=== PATIENT | male | born 1955 | race American Indian/Alaskan Native ===

== ENCOUNTER 2017-09-06 15:26 | Emergency (ER) | payer MEDICAID ==
[2017-09-06 16:48] LABS: Bacteria,Urine 1+ /HPF (Negative); Bilirubin,Urine NEG (Negative); Blood,Urine MOD (Negative); Color,Urine Yellow (Yellow); Mucus,Urine FEW /HPF; Urobilinogen,Urine < 2.0 mg/dL (<2.0)
[2017-09-06 16:50] LABS: RBC,Urine > 182.0 /HPF (0.0-6.0)
[2017-09-06 16:51] LABS: WBC,Urine > 182.0 /HPF (0.0-6.0)
[2017-09-06 17:01] LABS: Hemoglobin 13.3 gm/dl (11.8-15.2); Mean Corpuscular HGB Conc 33 % (32-34); Mean Corpuscular Hemoglobin 30 pg (28-32); Mean Corpuscular Volume 90 fl (84-94); Platelet Count 255 K/mm3 (140-440); Red Blood Count 4.43 M/mm3 (3.65-5.03); Red Cell Distribution Width 14.7 % (13.2-15.2)
[2017-09-06 17:15] LABS: Alanine Aminotransferase 10 units/L (7-56); Albumin 3.7 g/dL (3.9-5); BUN/Creatinine Ratio 13; Blood Urea Nitrogen 13 mg/dL (9-20); Calcium 8.9 mg/dL (8.4-10.2); Hemolysis Index 9
[2017-09-06] MEDS ORDERED: LEVAQUIN PO ONE (17:24)
[2017-09-06 17:53] LABS: Basophils % (Manual) 0 % (0.0-1.8); Eosinophils % (Manual) 0 % (0.0-4.3); Total Cells Counted 100
--- NOTE | 2017-09-06 18:01 | XRay Report ---
FINAL REPORT PROCEDURE: XR ABDOMEN 2V TECHNIQUE: Abdominal radiograph, single supine AP view. HISTORY: abd pain COMPARISON: No prior studies are available for comparison. FINDINGS: Bowel gas pattern:Intestinal gas is distributed in nondistended small and large bowel loops. There is mild degree residual stool.. Masses or calcifications:A 1.5 centimeter radiopaque density is noted in the right lower quadrant. 3 millimeter radiopaque density is noted in the pelvis on the right side just below the level of the sacroiliac joint most likely representing a phlebolith... Bony structures:No significant abnormality. Other:None. IMPRESSION: Nonspecific intestinal gas pattern 1.5 centimeter radiopaque density in the right lower quadrant most likely represents an ingested foreign body within the cecum. 3 millimeter radiopaque density in the pelvis most likely represents a phlebolith. Comparison with any previous studies would be of help.
[2017-09-06 19:31] VITALS: BP 144/82
--- NOTE | 2017-09-06 19:32 | Ultrasound Report ---
FINAL REPORT PROCEDURE: Limited abdominal ultrasound. TECHNIQUE: Real-time sonography was performed of the right upper quadrant of the abdomen with image documentation. CPT 73700 HISTORY: Upper abdominal pain. COMPARISON: No prior studies are available for comparison. FINDINGS: The pancreas is grossly normal. The liver has uniform echogenicity without focal masses. The gallbladder is incompletely distended. There is no definite gallbladder wall thickening. There are numerous echogenic gallstones. The technologist did not report whether or not the patient was tender over the gallbladder. The common bile duct measures 4.4 millimeters. The right kidney appears normal in size and has normal echogenicity. IMPRESSION: Cholelithiasis.
--- NOTE | 2017-09-06 19:48 | Emergency Department Report ---
HPI - General Chief Complaint: Urogenital-Male Time Seen by Provider: 09/06/17 16:22 - HPI HPI: 62-year-old male presents to the emergency department with 2 complaints. First, the patient says that his Gilmore catheter has not been draining and has not done so for the past 2-3 days. He is not very specific on the reason why he needs an indwelling Gilmore catheter but says this particular Gilmore has been in for a few months and overall he has been using one for about 7 years. He says that he does not have a specific urologist and usually goes in and see someone threw the [facility]. He denies any fever, nausea, vomiting, dysuria, hematuria. Secondary, patient points of some upper abdominal pain has been going on for the past few days. He denies any constipation, diarrhea. He has not taken anything for his symptoms prior to presentation. No recent travel or sick contacts at home. ED Past Medical Hx - Past Medical History Previous Medical History?: Yes Additional medical history: urinary problems - Social History Smoking Status: Current Some Day Smoker Substance Use Type: None - Medications Home Medications: Home Medications Medication Instructions Recorded Confirmed Last Taken Type Sulfamethoxazole/Trimethoprim 1 each PO BID #14 tablet 09/06/17 Unknown Rx [Bactrim DS TAB] ED Review of Systems ROS: Stated complaint: ABD PAIN Other details as noted in HPI Comment: All other systems reviewed and negative Constitutional: denies: chills, fever Eyes: denies: eye pain, eye discharge, vision change ENT: denies: ear pain, throat pain Respiratory: denies: cough, shortness of breath, wheezing Cardiovascular: denies: chest pain, palpitations Gastrointestinal: abdominal pain. denies: vomiting Genitourinary: denies: hematuria, discharge Musculoskeletal: denies: back pain, joint swelling, arthralgia Skin: denies: rash, lesions Neurological: denies: headache, weakness, paresthesias Physical Exam - Physical Exam Vital Signs: Vital Signs 09/06/17 09/06/17 09/06/17 16:01 18:24 19:10 Temperature 98.1 F 98.1 F Pulse Rate 86 71 75 Respiratory 18 20 18 Rate Blood Pressure 138/93 Blood Pressure 132/72 144/82 [Left] O2 Sat by Pulse 98 100 98 Oximetry Physical Exam: GENERAL: The patient is well-developed well-nourished. HENT: Normocephalic. Atraumatic. Patient has moist mucous membranes. EYES: Extraocular motions are intact. Pupils equal reactive to light bilaterally. NECK: Supple. Trachea is midline. CHEST/LUNGS: Clear to auscultation. There is no respiratory distress noted. HEART/CARDIOVASCULAR: Regular. There is no tachycardia. There is no murmur. ABDOMEN: Abdomen is soft. Mild right upper quadrant tenderness to palpation. No guarding. Patient has normal bowel sounds. There is no abdominal distention. SKIN: There is no rash. There is no edema. There is no diaphoresis. NEURO: The patient is awake, alert, and oriented. The patient is cooperative. The patient has no focal neurologic deficits. The patient has normal speech and gait. MUSCULOSKELETAL: There is no tenderness or deformity. There is no limitation range of motion. There is no evidence of acute injury. ED Course Vital Signs 09/06/17 09/06/17 09/06/17 16:01 18:24 19:10 Temperature 98.1 F 98.1 F Pulse Rate 86 71 75 Respiratory 18 20 18 Rate Blood Pressure 138/93 Blood Pressure 132/72 144/82 [Left] O2 Sat by Pulse 98 100 98 Oximetry ED Medical Decision Making - Lab Data Result diagrams: 09/06/17 16:47 09/06/17 16:47 - Radiology Data Radiology results: report reviewed, image reviewed interpreted by me: Abdominal x-ray shows nonspecific nonobstructive bowel gas. PROCEDURE: Limited abdominal ultrasound. TECHNIQUE: Real-time sonography was performed of the right upper quadrant of the abdomen with image documentation. CPT 20642 HISTORY: Upper abdominal pain. COMPARISON: No prior studies are available for comparison. FINDINGS: The pancreas is grossly normal. The liver has uniform echogenicity without focal masses. The gallbladder is incompletely distended. There is no definite gallbladder wall thickening. There are numerous echogenic gallstones. The technologist did not report whether or not the patient was tender over the gallbladder. The common bile duct measures 4.4 millimeters. The right kidney appears normal in size and has normal echogenicity. IMPRESSION: Cholelithiasis. Transcribed By: [facility] Dictated By: RAJEEV STEARNS MD Electronically Authenticated By: RAJEEV STEARNS MD Signed Date/Time: 03/24/18 1927 - Medical Decision Making Regarding the patient's Gilmore catheter, it was hard to flush so it was replaced and there were no obvious complications. There was some mild to moderate drainage at first. Bladder scan was done that showed no residual urine in the bladder. The urine was tested and it showed a urinary tract infection and the patient will be treated with antibiotics. Regarding the patient's upper abdominal pain, the patient had an ultrasound done that shows cholelithiasis without cholecystitis. The rest of his labs are unremarkable including belly labs such as LFTs, bilirubin and lipase. The patient appears safe for discharge home at this time. Vital signs stable throughout his ED course. He says he is feeling improved. He has been given referrals for primary care, urology and Gen. surgery. He will return to the ER with any worsening of his symptoms or any acute distress. - Differential Diagnosis UTI, BPH, pyelonephritis, cholelithiasis, cholecystitis Critical Care Time: No Critical care attestation.: If time is entered above; I have spent that time in minutes in the direct care of this critically ill patient, excluding procedure time. ED Disposition Clinical Impression: UTI (urinary tract infection) Obstructed Gilmore catheter Qualifiers: Encounter type: initial encounter Qualified Code(s): T83.091A - Other mechanical complication of indwelling urethral catheter, initial encounter Cholelithiasis Qualifiers: Cholelithiasis location: gallbladder Cholecystitis presence: without cholecystitis Biliary obstruction: without biliary obstruction Qualified Code(s) : K80.20 - Calculus of gallbladder without cholecystitis without obstruction Disposition: DC-01 TO HOME OR SELFCARE Is pt being admited?: No Condition: Stable Instructions: Biliary Colic (ED), Gilmore Catheter Placement and Care (ED), Urinary Tract Infection in Men (ED) Additional Instructions: Please follow-up with your primary care doctor in the next few days. I have given her a referral for a local surgeon, Dr guzmán, to follow up regarding her gallstones. I have given you a local urologist, Dr Young, to follow up regarding your urinary problems and your gilmore catheter. Return to the emergency Department with any worsening of your symptoms or any acute distress. Prescriptions: Sulfamethoxazole/Trimethoprim [Bactrim DS TAB] 1 each PO BID #14 tablet Referrals: BALJINDER TALLEY MD [Primary Care Provider] - 3-5 Days LARRY GUZMÁN MD [Staff Physician] - 3-5 Days MARLENY YOUNG MD [Staff Physician] - 3-5 Days Time of Disposition: 19:48
== END 2017-09-06 20:26 | disposition home or self-care (01) ==
LOC: ED 15:26
DX: N39.0 Urinary tract infection, site not specified (principal); K80.20 Calculus of gallbladder without cholecystitis without obstruction; T83.091A Other mechanical complication of indwelling urethral catheter, initial encounter; F17.200 Nicotine dependence, unspecified, uncomplicated
CPT/HCPCS: 36415; 51702; 74019; 76705; 80053; 81001; 85007; 85025; 99285

== ENCOUNTER 2018-01-05 10:45 | Emergency (ER) | payer MEDICAID ==
[2018-01-05 12:04] LABS: Bacteria,Urine 3+ /HPF (Negative); Bilirubin,Urine NEG (Negative); Blood,Urine MOD (Negative); Color,Urine Yellow (Yellow); Mucus,Urine 1+ /HPF
[2018-01-05 12:05] LABS: RBC,Urine > 182.0 /HPF (0.0-6.0); WBC,Urine > 182.0 /HPF (0.0-6.0)
[2018-01-05 12:26] LABS: Basophils % (Auto) 0.5 % (0.0-1.8); Eosinophils # (Auto) 0.1 K/mm3 (0.0-0.4); Eosinophils % (Auto) 1.2 % (0.0-4.3); Hematocrit 40.5 % (35.5-45.6); Hemoglobin 13.6 gm/dl (11.8-15.2); Lymphocytes # (Auto) 1.5 K/mm3 (1.2-5.4); Lymphocytes % (Auto) 30.2 % (13.4-35.0); Mean Corpuscular HGB Conc 34 % (32-34); Mean Corpuscular Hemoglobin 31 pg (28-32); Mean Corpuscular Volume 92 fl (84-94); Monocytes # (Auto) 0.3 K/mm3 (0.0-0.8); Monocytes % (Auto) 5.7 % (0.0-7.3); Platelet Count 182 K/mm3 (140-440); Red Blood Count 4.38 M/mm3 (3.65-5.03); Red Cell Distribution Width 15.3 % (13.2-15.2)
[2018-01-05 12:38] LABS: BUN/Creatinine Ratio 16; Blood Urea Nitrogen 21 mg/dL (9-20); Calcium 9.2 mg/dL (8.4-10.2); Hemolysis Index 6
[2018-01-05 12:52] VITALS: BP 155/99
--- NOTE | 2018-01-05 12:54 | Emergency Department Report ---
HPI - General Chief Complaint: Tube Replacement Time Seen by Provider: 01/05/18 12:42 - HPI HPI: 62-year-old male presents to the emergency department with complaint of a clogged indwelling Hopson catheter. He has had a small amount of cloudy urine output but otherwise feels like he has to urinate and there does not appear to be enough output to match. He has lower abdominal and suprapubic discomfort. He did not take anything for her symptoms by presentation. He denies having a urologist for follow-up. No fever, nausea, vomiting. He says that he has had a urinary catheter in place over the past 10 years that he says is secondary to prostate issues. ED Past Medical Hx - Past Medical History Additional medical history: urinary problems - Social History Smoking Status: Current Every Day Smoker Substance Use Type: None - Medications Home Medications: Home Medications Medication Instructions Recorded Confirmed Last Taken Type Sulfamethoxazole/Trimethoprim 1 each PO BID #14 tablet 09/06/17 Unknown Rx [Bactrim DS TAB] Ciprofloxacin HCl [Cipro] 500 mg PO BID #14 tablet 01/05/18 Unknown Rx ED Review of Systems ROS: Stated complaint: PENAL AREA Other details as noted in HPI Comment: All other systems reviewed and negative Constitutional: denies: chills, fever Eyes: denies: eye pain, eye discharge, vision change ENT: denies: ear pain, throat pain Respiratory: denies: cough, shortness of breath, wheezing Cardiovascular: denies: chest pain, palpitations Gastrointestinal: abdominal pain. denies: vomiting Genitourinary: urgency, dysuria Musculoskeletal: denies: back pain, joint swelling, arthralgia Skin: denies: rash, lesions Neurological: denies: headache, weakness, paresthesias Physical Exam - Physical Exam Vital Signs: Vital Signs 01/05/18 11:31 Temperature 97.6 F Pulse Rate 89 Respiratory 24 Rate Blood Pressure 175/108 O2 Sat by Pulse 100 Oximetry ED Course Vital Signs 01/05/18 11:31 Temperature 97.6 F Pulse Rate 89 Respiratory 24 Rate Blood Pressure 175/108 O2 Sat by Pulse 100 Oximetry ED Medical Decision Making - Lab Data Result diagrams: 01/05/18 12:16 01/05/18 12:16 - Medical Decision Making The patient's Hopson catheter was replaced upon arrival to the emergency department with a 16 Armenian catheter. There were a few large blood clots and immediately exited followed by about 1 L of urine. After this, patient says that he feels greatly improved. Critical care attestation.: If time is entered above; I have spent that time in minutes in the direct care of this critically ill patient, excluding procedure time. ED Disposition Clinical Impression: Obstructed Hopson catheter Qualifiers: Encounter type: initial encounter Qualified Code(s): T83.091A - Other mechanical complication of indwelling urethral catheter, initial encounter UTI (urinary tract infection) Qualifiers: Urinary tract infection type: acute cystitis Hematuria presence: with hematuria Qualified Code(s): N30.01 - Acute cystitis with hematuria Hematuria Qualifiers: Hematuria type: unspecified type Qualified Code(s): R31.9 - Hematuria, unspecified Hypertension Qualifiers: Hypertension type: essential hypertension Qualified Code(s): I10 - Essential ( primary) hypertension Disposition: TO HOME OR SELFCARE Is pt being admited?: No Condition: Stable Instructions: Hopson Catheter Placement and Care (ED), Urinary Tract Infection in Men (ED), Acute Hematuria (ED), Hypertension (ED) Additional Instructions: Please follow up with a primary care physician in the next few days. I've also given urinary referral for a local urologist, Dr. Young, to follow up regarding your Hopson catheter issues, your urinary tract infection and the blood found in the urine and catheter. Return to the emergency Department with any worsening of your symptoms or any acute distress. Try and stay away from foods that are high in salt and caffeinated products to help with your elevated blood pressure. Keep a blood pressure log. Take antibiotics as prescribed. Prescriptions: Ciprofloxacin HCl [Cipro] 500 mg PO BID #14 tablet Referrals: SOLEDAD OLEA MD [Primary Care Provider] - 3-5 Days MARLENY YOUNG MD [Staff Physician] - 3-5 Days JIMMY HOLLEY MD [Staff Physician] - 3-5 Days [facility] [Outside] - 3-5 Days Time of Disposition: 12:55
== END 2018-01-05 13:07 | disposition home or self-care (01) ==
LOC: ED 10:45
DX: T83.091A Other mechanical complication of indwelling urethral catheter, initial encounter (principal); N30.01 Acute cystitis with hematuria; I10 Essential (primary) hypertension; F17.200 Nicotine dependence, unspecified, uncomplicated
CPT/HCPCS: 36415; 51702; 80048; 81001; 85025; 87086; 99283

== ENCOUNTER 2018-01-07 04:09 | Emergency (ER) | payer MEDICAID ==
[2018-01-07] MEDS ORDERED: AUGMENTIN 875 MG PO ONE (07:51)
[2018-01-07] MEDS ORDERED: MOTRIN PO ONE (07:51)
--- NOTE | 2018-01-07 07:56 | Emergency Department Report ---
ED ENT HPI - General Chief complaint: Earache Stated complaint: EAR PAIN Time Seen by Provider: 01/07/18 07:31 Source: patient Mode of arrival: Ambulatory Limitations: No Limitations - History of Present Illness Initial comments: 62-year-old male past medical history chronic indwelling urinary catheter presents with complaint of approximately 2-3 days of persistent bilateral earache. Patient states he feels as though his ears are both filled with wax. Denies fevers or chills. States he has slightly muffled hearing bilaterally. Patient is awake alert and oriented 3 does not appear to be in acute distress. States discomfort started in left ear then migrated to right. Denies any tinnitus. States he has been attempting to clean his ears at home with eardrops and Q-tips MD complaint: ear pain Onset/Timin -: days(s) Location: R ear, L ear Severity: mild Quality: aching Consistency: constant - Related Data Previous Rx's Medication Instructions Recorded Last Taken Type Sulfamethoxazole/Trimethoprim 1 each PO BID #14 tablet 09/06/17 Unknown Rx [Bactrim DS TAB] Ciprofloxacin HCl [Cipro] 500 mg PO BID #14 tablet 01/05/18 Unknown Rx Amoxicillin/K Clav Tab [Augmentin 1 tab PO Q12HR #14 tab 01/07/18 Unknown Rx 875 mg] Ibuprofen [Motrin] 800 mg PO Q8HR PRN #15 tablet 01/07/18 Unknown Rx Neomy/Polymyx B/Hc (Otic) Soln 4 drops OTIC TID #1 bottle 01/07/18 Unknown Rx [Cortisporin (Otic) Soln] Allergies Allergy/AdvReac Type Severity Reaction Status Date / Time No Known Allergies Allergy Unverified 09/06/17 16:01 ED Dental HPI - General Chief complaint: Earache Stated complaint: EAR PAIN Time Seen by Provider: 01/07/18 07:31 Source: patient Mode of arrival: Ambulatory Limitations: No Limitations - Related Data Previous Rx's Medication Instructions Recorded Last Taken Type Sulfamethoxazole/Trimethoprim 1 each PO BID #14 tablet 09/06/17 Unknown Rx [Bactrim DS TAB] Ciprofloxacin HCl [Cipro] 500 mg PO BID #14 tablet 01/05/18 Unknown Rx Amoxicillin/K Clav Tab [Augmentin 1 tab PO Q12HR #14 tab 01/07/18 Unknown Rx 875 mg] Ibuprofen [Motrin] 800 mg PO Q8HR PRN #15 tablet 01/07/18 Unknown Rx Neomy/Polymyx B/Hc (Otic) Soln 4 drops OTIC TID #1 bottle 01/07/18 Unknown Rx [Cortisporin (Otic) Soln] Allergies Allergy/AdvReac Type Severity Reaction Status Date / Time No Known Allergies Allergy Unverified 09/06/17 16:01 ED Review of Systems ROS: Stated complaint: EAR PAIN Other details as noted in HPI Constitutional: denies: chills, fever Eyes: denies: eye pain, eye discharge, vision change ENT: ear pain. denies: throat pain Respiratory: denies: cough, shortness of breath, wheezing Cardiovascular: denies: chest pain, palpitations Endocrine: no symptoms reported Gastrointestinal: denies: abdominal pain, nausea, diarrhea Genitourinary: denies: urgency, dysuria Musculoskeletal: denies: back pain, joint swelling, arthralgia Skin: denies: rash, lesions Neurological: denies: headache, weakness, paresthesias Psychiatric: denies: anxiety, depression Hematological/Lymphatic: denies: easy bleeding, easy bruising ED Past Medical Hx - Past Medical History Additional medical history: urinary problems - Social History Smoking Status: Current Every Day Smoker Substance Use Type: Alcohol - Medications Home Medications: Home Medications Medication Instructions Recorded Confirmed Last Taken Type Sulfamethoxazole/Trimethoprim 1 each PO BID #14 tablet 09/06/17 Unknown Rx [Bactrim DS TAB] Ciprofloxacin HCl [Cipro] 500 mg PO BID #14 tablet 01/05/18 Unknown Rx Amoxicillin/K Clav Tab [Augmentin 1 tab PO Q12HR #14 tab 01/07/18 Unknown Rx 875 mg] Ibuprofen [Motrin] 800 mg PO Q8HR PRN #15 tablet 01/07/18 Unknown Rx Neomy/Polymyx B/Hc (Otic) Soln 4 drops OTIC TID #1 bottle 01/07/18 Unknown Rx [Cortisporin (Otic) Soln] ED Physical Exam - General Limitations: No Limitations General appearance: alert, in no apparent distress - Head Head exam: Present: atraumatic, normocephalic - Eye Eye exam: Present: normal appearance - ENT ENT exam: Present: mucous membranes moist - Expanded ENT Exam Expanded TM/Canal exam: Erythema: Right TM, Left TM (bilateral ear canal and tympanic membrane injection. There is no cerumen in either ear on examination. No clinical signs of mastoiditis), Bulging: Right TM, Left TM (slight effusion of each tympanic membrane) - Neck Neck exam: Present: normal inspection - Respiratory Respiratory exam: Present: normal lung sounds bilaterally. Absent: respiratory distress - Cardiovascular Cardiovascular Exam: Present: regular rate, normal rhythm. Absent: systolic murmur, diastolic murmur, rubs, gallop - GI/Abdominal GI/Abdominal exam: Present: soft, normal bowel sounds - Rectal Rectal exam: Present: deferred - exam: Present: other (chronic indwelling Hopson catheter) - Extremities Exam Extremities exam: Present: normal inspection - Back Exam Back exam: Present: normal inspection - Neurological Exam Neurological exam: Present: alert, oriented X3 - Psychiatric Psychiatric exam: Present: normal affect, normal mood - Skin Skin exam: Present: warm, dry, intact, normal color. Absent: rash ED Course Vital Signs 01/07/18 04:10 Temperature 99 F Pulse Rate 79 Respiratory 14 Rate Blood Pressure 159/106 [Left] O2 Sat by Pulse 99 Oximetry ED Medical Decision Making - Medical Decision Making A/P: Bilateral otitis media 1-course of Augmentin 2-Motrin when necessary 3-follow-up with primary care 4- vital signs stable for discharge Critical care attestation.: If time is entered above; I have spent that time in minutes in the direct care of this critically ill patient, excluding procedure time. ED Disposition Clinical Impression: Otitis media Qualifiers: Otitis media type: unspecified Laterality: bilateral Qualified Code(s): H66.93 - Otitis media, unspecified, bilateral Disposition: - TO HOME OR SELFCARE Is pt being admited?: No Does the pt Need Aspirin: No Condition: Stable Instructions: Otitis Media (ED) Prescriptions: Amoxicillin/K Clav Tab [Augmentin 875 mg] 1 tab PO Q12HR #14 tab Ibuprofen [Motrin] 800 mg PO Q8HR PRN #15 tablet PRN Reason: Ear Pain Neomy/Polymyx B/Hc (Otic) Soln [Cortisporin (Otic) Soln] 4 drops OTIC TID #1 bottle Referrals: [facility] [Provider Group] - 3-5 Days Time of Disposition: 07:57
[2018-01-07 08:16] VITALS: BP 176/102
== END 2018-01-07 08:19 | disposition home or self-care (01) ==
LOC: ED 04:09
DX: H66.93 Otitis media, unspecified, bilateral (principal); F17.200 Nicotine dependence, unspecified, uncomplicated
CPT/HCPCS: 99282

== ENCOUNTER 2018-01-13 00:41 | Emergency (ER) | payer MEDICAID ==
[2018-01-13 04:36] LABS: Amorphous Crystals,Urine 3+; Bilirubin,Urine NEG (Negative); Blood,Urine NEG (Negative); Color,Urine Yellow (Yellow)
[2018-01-13 04:42] LABS: Protein,Urine >500 mg/dL (Negative); RBC,Urine < 1.0 /HPF (0.0-6.0)
[2018-01-13] MEDS ORDERED: KEFLEX PO ONE (04:51)
--- NOTE | 2018-01-13 05:01 | Emergency Department Report ---
HPI - General Chief Complaint: Abdominal Pain Time Seen by Provider: 01/13/18 04:12 - HPI HPI: 62-year-old male presents to the emergency department via EMS from home after he woke up and realized that his Gilmore catheter was not draining. He began having some lower abdominal and or suprapubic discomfort. No fever, nausea or vomiting. Patient has a history of BPH, hypertension, and has previous abdominal surgery for his prostate. He says that the Gilmore catheter has been in place for about one month. He says that he does not have a urologist. He did not take anything for her symptoms prior to presentation. ED Past Medical Hx - Past Medical History Hx Hypertension: Yes Additional medical history: urinary problems, BPH - Surgical History Additional Surgical History: Abdominal Surgery for prostate. - Social History Smoking Status: Current Every Day Smoker Substance Use Type: None - Medications Home Medications: Home Medications Medication Instructions Recorded Confirmed Last Taken Type Sulfamethoxazole/Trimethoprim 1 each PO BID #14 tablet 09/06/17 01/13/18 Unknown Rx [Bactrim DS TAB] Amoxicillin/K Clav Tab [Augmentin 1 tab PO Q12HR #14 tab 01/07/18 01/13/18 Unknown Rx 875 mg] Ibuprofen [Motrin] 800 mg PO Q8HR PRN #15 tablet 01/07/18 01/13/18 Unknown Rx Neomy/Polymyx B/Hc (Otic) Soln 4 drops OTIC TID #1 bottle 01/07/18 01/13/18 Unknown Rx [Cortisporin (Otic) Soln] Ciprofloxacin HCl [Cipro] 500 mg PO BID #14 tablet 01/13/18 Unknown Rx ED Review of Systems ROS: Stated complaint: URINARY RETENTION Other details as noted in HPI Comment: All other systems reviewed and negative Constitutional: denies: chills, fever Eyes: denies: eye pain, eye discharge, vision change ENT: denies: ear pain, throat pain Respiratory: denies: cough, shortness of breath, wheezing Cardiovascular: denies: chest pain, palpitations Gastrointestinal: abdominal pain. denies: nausea, vomiting Genitourinary: other (gilmore catheter malfunction). denies: discharge Musculoskeletal: denies: back pain, joint swelling, arthralgia Skin: denies: rash, lesions Neurological: denies: headache, weakness, paresthesias Physical Exam - Physical Exam Vital Signs: Vital Signs 01/13/18 01/13/18 01/13/18 01:36 02:55 03:36 Temperature 97.4 F L Pulse Rate 101 H Respiratory 18 Rate Blood Pressure 187/110 151/102 Blood Pressure [Right] O2 Sat by Pulse 98 97 Oximetry 01/13/18 01/13/18 01/13/18 03:50 03:51 04:00 Temperature Pulse Rate 78 Respiratory 18 18 Rate Blood Pressure 145/89 Blood Pressure 151/102 [Right] O2 Sat by Pulse 98 Oximetry Physical Exam: GENERAL: The patient is well-developed well-nourished. HENT: Normocephalic. Atraumatic. Patient has moist mucous membranes. EYES: Extraocular motions are intact. NECK: Supple. Trachea is midline. CHEST/LUNGS: Clear to auscultation. There is no respiratory distress noted. HEART/CARDIOVASCULAR: Regular. There is no tachycardia. There is no murmur. ABDOMEN: Abdomen is soft, nontender. Patient has normal bowel sounds. There is no abdominal distention. SKIN: Skin is warm and dry. NEURO: The patient is awake, alert. The patient is cooperative. The patient has normal speech. MUSCULOSKELETAL: There is no tenderness or deformity. There is no limitation range of motion. There is no evidence of acute injury. : Patient has a Gilmore catheter in place. ED Course Vital Signs 01/13/18 01/13/18 01/13/18 01:36 02:55 03:36 Temperature 97.4 F L Pulse Rate 101 H Respiratory 18 Rate Blood Pressure 187/110 151/102 Blood Pressure [Right] O2 Sat by Pulse 98 97 Oximetry 01/13/18 01/13/18 01/13/18 03:50 03:51 04:00 Temperature Pulse Rate 78 Respiratory 18 18 Rate Blood Pressure 145/89 Blood Pressure 151/102 [Right] O2 Sat by Pulse 98 Oximetry ED Medical Decision Making - Medical Decision Making Patient presented with his Gilmore catheter not appropriately draining. When he got here the Gilmore catheter was changed out and the patient had about 500 mL of drainage in total. He no longer had any abdominal discomfort. Urinalysis was sent and the patient appears to have a urinary tract infection. The patient says that he does not have a urologist despite having prostate issues, previous prostate surgery and this Gilmore catheter in place. Therefore he has been given a referral for a local urologist for follow-up. He has been placed on antibiotics for the UTI. Vital signs stable throughout his ED course including being afebrile. He has been instructed to return to the emergency Department with any worsening of his symptoms or any acute distress. - Differential Diagnosis UTI, bladder outlet obstruction, malfunctioning Gilmore catheter Critical Care Time: No Critical care attestation.: If time is entered above; I have spent that time in minutes in the direct care of this critically ill patient, excluding procedure time. ED Disposition Clinical Impression: Obstructed Gilmore catheter Qualifiers: Encounter type: initial encounter Qualified Code(s): T83.091A - Other mechanical complication of indwelling urethral catheter, initial encounter UTI (urinary tract infection) Qualifiers: Urinary tract infection type: acute cystitis Hematuria presence: with hematuria Qualified Code(s): N30.01 - Acute cystitis with hematuria Disposition: TO HOME OR SELFCARE Is pt being admited?: No Condition: Stable Instructions: Urinary Tract Infection in Men (ED), Gilmore Catheter Placement and Care (ED) Additional Instructions: Please follow up with a urologist as soon as possible. Take the antibiotics as prescribed. Return to the emergency Department with any worsening of your symptoms or any acute distress. I have given you a referral for a local urologist, Dr. Yu. Prescriptions: Ciprofloxacin HCl [Cipro] 500 mg PO BID #14 tablet Referrals: PRIMARY MD EMMIE [Primary Care Provider] - 3-5 Days DAYRON CEBALLOS MD [Staff Physician] - [facility] Time of Disposition: 05:03
[2018-01-13 05:32] VITALS: BP 152/92
== END 2018-01-13 05:33 | disposition home or self-care (01) ==
LOC: ED 00:41
DX: T83.091A Other mechanical complication of indwelling urethral catheter, initial encounter (principal); N39.0 Urinary tract infection, site not specified; F17.200 Nicotine dependence, unspecified, uncomplicated; I10 Essential (primary) hypertension
CPT/HCPCS: 51702; 81001

== ENCOUNTER 2018-01-14 21:05 | Emergency (ER) | payer MEDICAID ==
[2018-01-14] MEDS ORDERED: CATAPRES PO ONE (22:13)
[2018-01-15 00:18] VITALS: BP 147/99
--- NOTE | 2018-01-15 02:22 | Emergency Department Report ---
ED ENT HPI - General Chief complaint: Earache Stated complaint: EAR PAIN Time Seen by Provider: 01/15/18 02:15 Source: patient, family Mode of arrival: Carried (Peds) (he is breast-feeding is usually will follow his ) Limitations: No Limitations - History of Present Illness Initial comments: Nilda presents for sore throat for 2 days s patient is a 62-year-old - [place] male with indwelling Hopson catheter caleb BLUNT complaint: tooth pain, ear pain, trauma/injury Onset/Timin -: days(s) Location: R ear, L ear, nose Severity: moderate Severity scale (0 -10): 3 Quality: burning Consistency: constant Improves with: none Worsens with: none - Related Data Previous Rx's Medication Instructions Recorded Last Taken Type Ciprofloxacin HCl [Cipro] 500 mg PO BID #14 tablet 01/13/18 Unknown Rx Amoxicillin/K Clav Tab [Augmentin 1 tab PO Q12HR #14 tab 01/15/18 Unknown Rx 875MG TAB] Ibuprofen [Motrin 800 MG tab] 800 mg PO Q8HR PRN #15 tablet 01/15/18 Unknown Rx Neomy/Polymyx B/Hc (Otic) Soln 4 drops OTIC TID #1 bottle 01/15/18 Unknown Rx [Cortisporin (Otic) Soln] Sulfamethoxazole/Trimethoprim 1 each PO BID #14 tablet 01/15/18 Unknown Rx [Bactrim DS TAB] Allergies Allergy/AdvReac Type Severity Reaction Status Date / Time No Known Allergies Allergy Unverified 09/06/17 16:01 ED Dental HPI - General Chief complaint: Earache Stated complaint: EAR PAIN Time Seen by Provider: 01/15/18 02:15 Source: patient Mode of arrival: Stretcher Limitations: No Limitations - Related Data Previous Rx's Medication Instructions Recorded Last Taken Type Ciprofloxacin HCl [Cipro] 500 mg PO BID #14 tablet 01/13/18 Unknown Rx Amoxicillin/K Clav Tab [Augmentin 1 tab PO Q12HR #14 tab 01/15/18 Unknown Rx 875MG TAB] Ibuprofen [Motrin 800 MG tab] 800 mg PO Q8HR PRN #15 tablet 01/15/18 Unknown Rx Neomy/Polymyx B/Hc (Otic) Soln 4 drops OTIC TID #1 bottle 01/15/18 Unknown Rx [Cortisporin (Otic) Soln] Sulfamethoxazole/Trimethoprim 1 each PO BID #14 tablet 01/15/18 Unknown Rx [Bactrim DS TAB] Allergies Allergy/AdvReac Type Severity Reaction Status Date / Time No Known Allergies Allergy Unverified 09/06/17 16:01 ED Review of Systems ROS: Stated complaint: EAR PAIN Other details as noted in HPI Constitutional: denies: chills, fever Eyes: denies: eye pain, eye discharge, vision change ENT: ear pain (bilat ). denies: throat pain Respiratory: denies: cough, shortness of breath, wheezing Cardiovascular: denies: chest pain, palpitations Endocrine: no symptoms reported Gastrointestinal: denies: abdominal pain, nausea, diarrhea Genitourinary: urgency, discharge Musculoskeletal: denies: back pain, joint swelling, arthralgia Skin: denies: rash, lesions Neurological: denies: headache, weakness, paresthesias Psychiatric: denies: anxiety, depression Hematological/Lymphatic: denies: easy bleeding, easy bruising ED Past Medical Hx - Past Medical History Previous Medical History?: Yes Hx Hypertension: Yes Hx Asthma: Yes Additional medical history: urinary problems, BPH - Surgical History Past Surgical History?: Yes Additional Surgical History: Abdominal Surgery for prostate. - Social History Smoking Status: Current Every Day Smoker Substance Use Type: Prescribed - Medications Home Medications: Home Medications Medication Instructions Recorded Confirmed Last Taken Type Ciprofloxacin HCl [Cipro] 500 mg PO BID #14 tablet 01/13/18 Unknown Rx Amoxicillin/K Clav Tab [Augmentin 1 tab PO Q12HR #14 tab 01/15/18 Unknown Rx 875MG TAB] Ibuprofen [Motrin 800 MG tab] 800 mg PO Q8HR PRN #15 tablet 01/15/18 Unknown Rx Neomy/Polymyx B/Hc (Otic) Soln 4 drops OTIC TID #1 bottle 01/15/18 Unknown Rx [Cortisporin (Otic) Soln] Sulfamethoxazole/Trimethoprim 1 each PO BID #14 tablet 01/15/18 Unknown Rx [Bactrim DS TAB] ED Physical Exam - General Limitations: No Limitations General appearance: alert, in no apparent distress - Head Head exam: Present: atraumatic, normocephalic - Eye Eye exam: Present: normal appearance - ENT ENT exam: Present: mucous membranes moist - Neck Neck exam: Present: normal inspection, full ROM ED Course Vital Signs 01/14/18 01/14/18 01/15/18 22:04 22:16 00:17 Temperature 7.6 F L Pulse Rate 84 83 81 Respiratory 18 18 Rate Blood Pressure 163/104 163/104 Blood Pressure 147/99 [Left] Blood Pressure 163/104 [Right] O2 Sat by Pulse 98 99 Oximetry - Paracentesis Consent Obtained: verbal consent Time Out Performed: No ED Medical Decision Making - EKG Data Interpretation: LVH, other - Medical Decision Making This is a 62-year-old male who presents for bilateral ear pain exam confirms same bilateral radial and there is no shortness of breath no wheezing abdomen is abuse at this time plan . Critical Care Time: Yes Critical care time in (mins) excluding proc time.: 1,705 Critical care attestation.: If time is entered above; I have spent that time in minutes in the direct care of this critically ill patient, excluding procedure time. ED Disposition Clinical Impression: AOM (acute otitis media) Qualifiers: Otitis media type: suppurative Laterality: bilateral Recurrence: recurrent Spontaneous tympanic membrane rupture: without spontaneous rupture Qualified Code(s): H66.006 - Acute suppurative otitis media without spontaneous rupture of ear drum, recurrent, bilateral Sinusitis Qualifiers: Sinusitis location: pansinusitis Chronicity: unspecified Qualified Code(s): J32.4 - Chronic pansinusitis Disposition: - TO HOME OR SELFCARE Is pt being admited?: No Does the pt Need Aspirin: No Condition: Good Instructions: Otitis Media (ED) Prescriptions: Amoxicillin/K Clav Tab [Augmentin 875MG TAB] 1 tab PO Q12HR #14 tab Ibuprofen [Motrin 800 MG tab] 800 mg PO Q8HR PRN #15 tablet PRN Reason: Ear Pain Neomy/Polymyx B/Hc (Otic) Soln [Cortisporin (Otic) Soln] 4 drops OTIC TID #1 bottle Sulfamethoxazole/Trimethoprim [Bactrim DS TAB] 1 each PO BID #14 tablet Referrals: RAJEEV CLEMENS MD [Primary Care Provider] - 3-5 Days Time of Disposition: 03:52
== END 2018-01-15 04:03 | disposition home or self-care (01) ==
LOC: ED 21:05
DX: H66.006 Acute suppurative otitis media without spontaneous rupture of ear drum, recurrent, bilateral (principal); J32.4 Chronic pansinusitis; I10 Essential (primary) hypertension; J45.909 Unspecified asthma, uncomplicated; F17.200 Nicotine dependence, unspecified, uncomplicated
CPT/HCPCS: 99283

== ENCOUNTER 2018-01-16 15:43 | Emergency (ER) | payer MEDICAID ==
[2018-01-16 16:10] VITALS: BP 125/62
[2018-01-16] MEDS ORDERED: NACL 0.9% 500 ML 500 ML IV ONE (16:47)
[2018-01-16 17:09] LABS: Basophils % (Auto) 0.6 % (0.0-1.8); Eosinophils # (Auto) 0.1 K/mm3 (0.0-0.4); Eosinophils % (Auto) 1.1 % (0.0-4.3); Hematocrit 41.2 % (35.5-45.6); Hemoglobin 14.1 gm/dl (11.8-15.2); Lymphocytes # (Auto) 1.8 K/mm3 (1.2-5.4); Lymphocytes % (Auto) 32.4 % (13.4-35.0); Mean Corpuscular HGB Conc 34 % (32-34); Mean Corpuscular Hemoglobin 32 pg (28-32); Mean Corpuscular Volume 92 fl (84-94); Monocytes # (Auto) 0.3 K/mm3 (0.0-0.8); Monocytes % (Auto) 5.5 % (0.0-7.3); Platelet Count 195 K/mm3 (140-440); Red Blood Count 4.47 M/mm3 (3.65-5.03); Red Cell Distribution Width 15.4 % (13.2-15.2)
[2018-01-16 17:20] LABS: BUN/Creatinine Ratio 15; Blood Urea Nitrogen 20 mg/dL (9-20); Calcium 9.4 mg/dL (8.4-10.2); Hemolysis Index 5
[2018-01-16] MEDS ORDERED: TYLENOL #3 PO ONE (17:42)
[2018-01-16 18:25] LABS: Bilirubin,Urine NEG (Negative); Blood,Urine SM (Negative); Color,Urine Yellow (Yellow); Protein,Urine <15 mg/dL mg/dL (Negative)
--- NOTE | 2018-01-16 18:25 | Emergency Department Report ---
HPI - General Chief Complaint: Tube Replacement Time Seen by Provider: 01/16/18 16:46 - HPI HPI: The patient is a 62-year-old male with a long-standing history of BPH and indwelling catheter who presents for catheter obstruction and abdominal pain. The patient reports catheter malfunction since 2 PM earlier today, associated with lower abdominal pain of same duration, pressure-like in quality, moderate severity, exacerbated with attempting to urinate. The patient denies trauma to the abdomen, hematuria, chest pain, dyspnea, back pain, paresthesia, motor deficit. ED Past Medical Hx - Past Medical History Hx Hypertension: Yes Hx Asthma: Yes Additional medical history: urinary problems, BPH - Surgical History Additional Surgical History: Abdominal Surgery for prostate. - Social History Smoking Status: Current Every Day Smoker Substance Use Type: None - Medications Home Medications: Home Medications Medication Instructions Recorded Confirmed Last Taken Type Ciprofloxacin HCl [Cipro] 500 mg PO BID #14 tablet 01/13/18 Unknown Rx Amoxicillin/K Clav Tab [Augmentin 1 tab PO Q12HR #14 tab 01/15/18 Unknown Rx 875MG TAB] Ibuprofen [Motrin 800 MG tab] 800 mg PO Q8HR PRN #15 tablet 01/15/18 Unknown Rx Neomy/Polymyx B/Hc (Otic) Soln 4 drops OTIC TID #1 bottle 01/15/18 Unknown Rx [Cortisporin (Otic) Soln] Sulfamethoxazole/Trimethoprim 1 each PO BID #14 tablet 01/15/18 Unknown Rx [Bactrim DS TAB] ED Review of Systems ROS: Stated complaint: CATHETER MALFUNCTION Other details as noted in HPI Constitutional: denies: fever ENT: denies: throat or neck pain Respiratory: denies: cough, shortness of breath Cardiovascular: denies: chest pain Endocrine: denies unexplained weight loss or gain Gastrointestinal: reports: abdominal pain, nausea Genitourinary: denies: dysuria Musculoskeletal: denies: leg swelling Skin: denies: rash Neurological: denies: headache Hematological/Lymphatic: denies: easy bleeding or easy bruising Psych: denies sadness or hopelessness Physical Exam - Physical Exam Vital Signs: Vital Signs 01/16/18 01/16/18 16:06 17:52 Temperature 98.1 F Pulse Rate 106 H 71 Respiratory 18 Rate Blood Pressure 125/62 O2 Sat by Pulse 98 99 Oximetry Physical Exam: General: well-nourished, well-developed, no acute distress Head: Normocephalic, atraumatic Eyes: normal sclera ENT: Mucous membranes are pale and dry Neck: No neck stiffness, no cervical adenopathy Respiratory: Breath sounds equal bilaterally, no wheezing, rales, or rhonchi Cardio: S1 and S2 present, no murmurs, rubs, gallops, capillary refill is delayed Abdomen: Normoactive bowel sounds, soft abdomen, suprapubic fullness and tenderness to palpation present, no rigidity, no guarding or rebound tenderness Musc: No pitting edema Skin: No rash Neuro: no facial drooping, normal speech Psych: Normal affect ED Course Vital Signs 01/16/18 01/16/18 16:06 17:52 Temperature 98.1 F Pulse Rate 106 H 71 Respiratory 18 Rate Blood Pressure 125/62 O2 Sat by Pulse 98 99 Oximetry ED Medical Decision Making - Lab Data Result diagrams: 01/16/18 16:54 01/16/18 16:54 - Medical Decision Making The patient was seen and examined by myself. The patient is placed on a monitoring and evaluation advisor and continuous pulse ox. On initial evaluation, the patient was found to be in no distress. Evaluation orders were placed. The patient was given pain medicine. The patient's Hopson catheter was changed successfully, and is draining urine properly. Lab results revealed elevated urine WBC, consistent with diagnosis of UTI 3 days ago, and otherwise labs are are not concerning including normal creatinine. Medical records were reviewed and revealed that the patient receive antibiotics and a prescription for antibiotics for treatment of UTI 3 days ago. The patient was instructed to continue prescribed antibiotic regimen to completion. The patient was reevaluated and reported that their symptoms were markedly improved. The patient is stable for discharge with outpatient follow-up. The patient is given follow-up and return instructions. The patient expressed understanding and agreed with the plan. The patient is discharged in stable condition. Critical care attestation.: If time is entered above; I have spent that time in minutes in the direct care of this critically ill patient, excluding procedure time. ED Disposition Clinical Impression: Suprapubic pain, acute Obstruction of urinary catheter Qualifiers: Encounter type: initial encounter Qualified Code(s): T83.098A - Other mechanical complication of other urinary catheter, initial encounter UTI (urinary tract infection) Qualifiers: Urinary tract infection type: acute cystitis Hematuria presence: without hematuria Qualified Code(s): N30.00 - Acute cystitis without hematuria Disposition: TO HOME OR SELFCARE Is pt being admited?: No Does the pt Need Aspirin: No Condition: Stable Instructions: Hopson Catheter Placement and Care (ED), Acute Abdominal Pain (ED) Referrals: PRIMARY CARE, [Primary Care Provider] - 3-5 Days Time of Disposition: 18:24
== END 2018-01-16 18:48 | disposition home or self-care (01) ==
LOC: ED 15:43
DX: T83.098A Other mechanical complication of other urinary catheter, initial encounter (principal); N30.00 Acute cystitis without hematuria; I10 Essential (primary) hypertension; J45.909 Unspecified asthma, uncomplicated; F17.200 Nicotine dependence, unspecified, uncomplicated
CPT/HCPCS: 36415; 51701; 51702; 80048; 81001; 83880; 85025; 99284

== ENCOUNTER 2018-01-18 20:47 | Emergency (ER) | payer MEDICAID ==
[2018-01-18] MEDS ORDERED: ASPIRIN PO ONE (20:57)
[2018-01-18 21:49] LABS: Basophils % (Auto) 0.4 % (0.0-1.8); Eosinophils # (Auto) 0.1 K/mm3 (0.0-0.4); Eosinophils % (Auto) 1.6 % (0.0-4.3); Hematocrit 42.1 % (35.5-45.6); Hemoglobin 14.4 gm/dl (11.8-15.2); Lymphocytes # (Auto) 1.9 K/mm3 (1.2-5.4); Mean Corpuscular HGB Conc 34 % (32-34); Mean Corpuscular Hemoglobin 32 pg (28-32); Mean Corpuscular Volume 92 fl (84-94); Monocytes # (Auto) 0.4 K/mm3 (0.0-0.8); Monocytes % (Auto) 7.5 % (0.0-7.3); Platelet Count 206 K/mm3 (140-440); Red Blood Count 4.56 M/mm3 (3.65-5.03)
[2018-01-18 22:11] LABS: BUN/Creatinine Ratio 17; Blood Urea Nitrogen 20 mg/dL (9-20); Calcium 9.4 mg/dL (8.4-10.2); Hemolysis Index 6
--- NOTE | 2018-01-18 23:16 | XRay Report ---
FINAL REPORT PROCEDURE: XR CHEST 1V AP TECHNIQUE: Chest radiograph anteroposterior view. CPT 22903 HISTORY: chest pain COMPARISON: No prior studies are available for comparison. FINDINGS: Heart: Normal. Mediastinum/Vessels: Normal. Lungs/Pleural space: Lungs are hyperinflated. There are no confluent infiltrates or mass lesions. Pleural spaces are clear.. Bony thorax: No acute osseous abnormality. Life support devices: None. IMPRESSION: COPD No acute pulmonary process.
[2018-01-19] MEDS ORDERED: TYLENOL #3 PO ONE (00:07)
--- NOTE | 2018-01-19 00:09 | Emergency Department Report ---
HPI - General Chief Complaint: Chest Pain Time Seen by Provider: 01/18/18 22:47 - HPI HPI: The patient is a 62-year-old male presents for evaluation of chest pain. The patient reports bilateral achy in quality chest pain for the past one day, currently mild in severity, exacerbated with movement of the arms. The patient denies fever, neck pain, parasthesias, dyspnea, cough, hemoptysis, palpitations , dizziness, syncope, unilateral leg swelling, calf muscle pain. Patient also denies cocaine or other stimulant use, history of DVT or PE, recent immobilization, or history of cancer. ED Past Medical Hx - Past Medical History Hx Hypertension: Yes Hx Asthma: Yes Additional medical history: urinary problems, BPH - Surgical History Additional Surgical History: Abdominal Surgery for prostate. Indwelling Hopson Cath - Social History Smoking Status: Current Every Day Smoker Substance Use Type: None - Medications Home Medications: Home Medications Medication Instructions Recorded Confirmed Last Taken Type Ciprofloxacin HCl [Cipro] 500 mg PO BID #14 tablet 01/13/18 Unknown Rx Amoxicillin/K Clav Tab [Augmentin 1 tab PO Q12HR #14 tab 01/15/18 Unknown Rx 875MG TAB] Ibuprofen [Motrin 800 MG tab] 800 mg PO Q8HR PRN #15 tablet 01/15/18 Unknown Rx Neomy/Polymyx B/Hc (Otic) Soln 4 drops OTIC TID #1 bottle 01/15/18 Unknown Rx [Cortisporin (Otic) Soln] Sulfamethoxazole/Trimethoprim 1 each PO BID #14 tablet 01/15/18 Unknown Rx [Bactrim DS TAB] ED Review of Systems ROS: Stated complaint: LEFT SHOULDER PAIN Other details as noted in HPI Constitutional: denies: fever ENT: denies: throat or neck pain Respiratory: denies: cough, shortness of breath Cardiovascular: reports: chest pain Endocrine: denies unexplained weight loss or gain Gastrointestinal: denies: abdominal pain, nausea Genitourinary: denies: dysuria Musculoskeletal: denies: leg swelling Skin: denies: rash Neurological: denies: headache Hematological/Lymphatic: denies: easy bleeding or easy bruising Psych: denies sadness or hopelessness Physical Exam - Physical Exam Vital Signs: Vital Signs 01/18/18 20:52 Temperature 97.8 F Pulse Rate 98 H Respiratory 18 Rate Blood Pressure 161/81 O2 Sat by Pulse 100 Oximetry Physical Exam: General: well-nourished, well-developed, no acute distress Head: Normocephalic, atraumatic Eyes: normal sclera ENT: Mucous membranes are pink and moist Neck: trachea midline, neck supple, No neck stiffness, no cervical adenopathy Respiratory: Breath sounds equal bilaterally, no wheezing, rales, or rhonchi Cardio: S1 and S2 present, no murmurs, rubs, gallops, capillary refill is brisk Abdomen: Normoactive bowel sounds, soft abdomen, no rigidity, no guarding or rebound tenderness Chest WALL/Back: Chest pain reproduced with internal rotation, adduction, and abduction of the arms bilaterally Musc: No pitting edema Skin: No rash Neuro: no facial drooping, normal speech Psych: Normal affect ED Course Vital Signs 01/18/18 20:52 Temperature 97.8 F Pulse Rate 98 H Respiratory 18 Rate Blood Pressure 161/81 O2 Sat by Pulse 100 Oximetry ED Medical Decision Making - Lab Data Result diagrams: 01/18/18 21:26 01/18/18 21:22 - Medical Decision Making The patient was seen and examined by myself. The patient is placed on a research aide and continuous pulse ox. On initial evaluation, the patient was found to be in no distress. EKG was negative for findings suggestive of acute cardiac infarct. Labs and imaging are obtained. The patient is given a Tylenol Tylenol 3 for his pain. Chest x-ray is negative for pneumothorax, focal consolidation, pulmonary vascular congestion, pleural effusion, or other obvious acute cardiopulmonary disease process. Lab results were non-concerning including levels of troponin, WBC, hemoglobin, hematocrit, electrolytes, renal function. The patient was reevaluated and reported that their symptoms were markedly improved. As the patient has a MICHAEL risk score less than 2, and a well's score less than 2, the patient is at low risk of ACS or pulmonary emboli etiology of their symptoms. The patient is stable for discharge with outpatient follow-up. The patient is given follow-up and return instructions. The patient expressed understanding and agreed with the plan. The patient is discharged in stable condition. Critical care attestation.: If time is entered above; I have spent that time in minutes in the direct care of this critically ill patient, excluding procedure time. ED Disposition Clinical Impression: Acute chest pain Disposition: TO HOME OR SELFCARE Is pt being admited?: No Does the pt Need Aspirin: No Condition: Stable Instructions: Chest Pain (ED) Referrals: PRIMARY CARE, [Primary Care Provider] - 3-5 Days Time of Disposition: 00:09
[2018-01-19] MEDS ORDERED: ASPIRIN ONE (00:24)
[2018-01-19 01:39] VITALS: BP 148/85
== END 2018-01-19 01:39 | disposition home or self-care (01) ==
LOC: ED 20:47
DX: R07.9 Chest pain, unspecified (principal); I10 Essential (primary) hypertension; J45.909 Unspecified asthma, uncomplicated; F17.200 Nicotine dependence, unspecified, uncomplicated
CPT/HCPCS: 36415; 71045; 80048; 84484; 85025; 93005; 93010; 99285

== ENCOUNTER 2018-01-21 02:41 | Emergency (ER) | payer MEDICAID ==
[2018-01-21 03:40] LABS: Basophils % (Auto) 0.4 % (0.0-1.8); Eosinophils # (Auto) 0.1 K/mm3 (0.0-0.4); Eosinophils % (Auto) 1.3 % (0.0-4.3); Hematocrit 37.9 % (35.5-45.6); Hemoglobin 12.7 gm/dl (11.8-15.2); Lymphocytes # (Auto) 1.7 K/mm3 (1.2-5.4); Lymphocytes % (Auto) 28.7 % (13.4-35.0); Mean Corpuscular HGB Conc 34 % (32-34); Mean Corpuscular Hemoglobin 31 pg (28-32); Mean Corpuscular Volume 93 fl (84-94); Monocytes # (Auto) 0.4 K/mm3 (0.0-0.8); Monocytes % (Auto) 6.9 % (0.0-7.3); Platelet Count 173 K/mm3 (140-440)
[2018-01-21 03:58] LABS: Alanine Aminotransferase 9 units/L (7-56); Albumin 3.6 g/dL (3.9-5); BUN/Creatinine Ratio 15; Blood Urea Nitrogen 15 mg/dL (9-20); Calcium 8.9 mg/dL (8.4-10.2); Hemolysis Index 12; Lipase 31 units/L (13-60)
[2018-01-21 05:09] LABS: Bacteria,Urine 2+ /HPF (Negative); Bilirubin,Urine NEG (Negative); Blood,Urine MOD (Negative); Calcium Oxalate Crystals,Urine 3+; Color,Urine Yellow (Yellow); Hyaline Casts,Urine 4 /LPF; Mucus,Urine FEW /HPF; Urobilinogen,Urine < 2.0 mg/dL (<2.0)
[2018-01-21 05:12] LABS: WBC,Urine > 182.0 /HPF (0.0-6.0)
--- NOTE | 2018-01-21 07:52 | Emergency Department Report ---
Blank Doc - Documentation Documentation: Pt eloped. Noted to have UTI. Instructed nurse to call pt back/notify. Urine C/S ordered.
[2018-01-21 08:02] VITALS: BP 157/95
[2018-01-21] MEDS ORDERED: XYLOCAINE 1% MPF 5 mL INFILTRATI ONE (09:09)
[2018-01-21] MEDS ORDERED: ROCEPHIN IM ONE (09:09)
--- NOTE | 2018-01-21 09:15 | Emergency Department Report ---
ED General Adult HPI - General Chief complaint: Abdominal Pain Stated complaint: ABDOMINAL PAIN Time Seen by Provider: 01/21/18 07:36 Source: EMS Mode of arrival: Stretcher Limitations: Altered Mental Status - History of Present Illness Initial comments: 62-year-old man who is a poor historian. He thinks he might of had a fever. He complains of suprapubic discomfort. He has an indwelling Hopson since July. He states he has a visiting nurse but the Hopson hasn't been changed for some time. He doesn't follow up regularly with anyone as far as I can tell. He cannot identify a urologist. He states he's had a Hopson catheter since a hernia repair. He is ambulatory. He initially eloped. However he returns to the emergency department requesting transport home. He is coherent. I have emphasized the importance of follow-up on this condition. His urine showed a good amount of pyuria. He is rechecked into the emergency department. His laboratory review from prior was benign. He will be treated with Rocephin and by mouth Cipro to follow. He is not complaining of any pain now. He said no nausea or vomiting. He has not measured his temperature. -: days(s) Radiation: abdomen - Related Data Previous Rx's Medication Instructions Recorded Last Taken Type Ciprofloxacin HCl [Cipro] 500 mg PO BID #14 tablet 01/13/18 Unknown Rx Amoxicillin/K Clav Tab [Augmentin 1 tab PO Q12HR #14 tab 01/15/18 Unknown Rx 875MG TAB] Ibuprofen [Motrin 800 MG tab] 800 mg PO Q8HR PRN #15 tablet 01/15/18 Unknown Rx Neomy/Polymyx B/Hc (Otic) Soln 4 drops OTIC TID #1 bottle 01/15/18 Unknown Rx [Cortisporin (Otic) Soln] Sulfamethoxazole/Trimethoprim 1 each PO BID #14 tablet 01/15/18 Unknown Rx [Bactrim DS TAB] Cefuroxime [Ceftin] 250 mg PO Q12H #14 tablet 01/21/18 Unknown Rx Allergies Allergy/AdvReac Type Severity Reaction Status Date / Time No Known Allergies Allergy Unverified 09/06/17 16:01 ED Review of Systems ROS: Stated complaint: ABDOMINAL PAIN Other details as noted in HPI Constitutional: fever (subjective). denies: chills Eyes: denies: eye pain, eye discharge, vision change ENT: denies: ear pain, throat pain Respiratory: denies: cough, shortness of breath, wheezing Cardiovascular: denies: chest pain, palpitations Endocrine: no symptoms reported Gastrointestinal: denies: abdominal pain, nausea, diarrhea Genitourinary: denies: urgency, dysuria Musculoskeletal: denies: back pain, joint swelling, arthralgia Skin: denies: rash, lesions Neurological: denies: headache, weakness, paresthesias Psychiatric: denies: anxiety, depression Hematological/Lymphatic: denies: easy bleeding, easy bruising ED Past Medical Hx - Past Medical History Hx Hypertension: Yes Hx Asthma: Yes Additional medical history: urinary problems, BPH - Surgical History Past Surgical History?: Yes Additional Surgical History: Abdominal Surgery for prostate. Indwelling Hopson Cath - Social History Smoking Status: Current Every Day Smoker Substance Use Type: None - Medications Home Medications: Home Medications Medication Instructions Recorded Confirmed Last Taken Type Ciprofloxacin HCl [Cipro] 500 mg PO BID #14 tablet 01/13/18 Unknown Rx Amoxicillin/K Clav Tab [Augmentin 1 tab PO Q12HR #14 tab 01/15/18 Unknown Rx 875MG TAB] Ibuprofen [Motrin 800 MG tab] 800 mg PO Q8HR PRN #15 tablet 01/15/18 Unknown Rx Neomy/Polymyx B/Hc (Otic) Soln 4 drops OTIC TID #1 bottle 01/15/18 Unknown Rx [Cortisporin (Otic) Soln] Sulfamethoxazole/Trimethoprim 1 each PO BID #14 tablet 01/15/18 Unknown Rx [Bactrim DS TAB] Cefuroxime [Ceftin] 250 mg PO Q12H #14 tablet 01/21/18 Unknown Rx ED Physical Exam - General Limitations: No Limitations General appearance: alert, in no apparent distress - Head Head exam: Present: atraumatic, normocephalic - Eye Eye exam: Present: normal appearance. Absent: scleral icterus - ENT ENT exam: Present: mucous membranes moist - Neck Neck exam: Present: normal inspection. Absent: tenderness, meningismus - Respiratory Respiratory exam: Present: normal lung sounds bilaterally. Absent: respiratory distress - Cardiovascular Cardiovascular Exam: Present: regular rate, normal rhythm. Absent: systolic murmur, diastolic murmur, rubs, gallop - GI/Abdominal GI/Abdominal exam: Present: soft, normal bowel sounds. Absent: distended, tenderness, guarding, rebound, rigid - Rectal Rectal exam: Present: deferred - Extremities Exam Extremities exam: Present: normal inspection - Back Exam Back exam: Present: normal inspection - Neurological Exam Neurological exam: Present: alert, oriented X3, CN II-XII intact. Absent: motor sensory deficit - Psychiatric Psychiatric exam: Present: normal affect, normal mood - Skin Skin exam: Present: warm, dry, intact, normal color. Absent: rash ED Course Vital Signs 01/21/18 01/21/18 01/21/18 02:50 02:59 03:00 Temperature 98.0 F Pulse Rate 66 Respiratory 20 Rate Blood Pressure 155/91 162/93 Blood Pressure 155/91 [Right] O2 Sat by Pulse 98 96 95 Oximetry 01/21/18 01/21/18 01/21/18 03:15 03:24 03:30 Temperature 97.5 F L Pulse Rate 75 Respiratory 18 Rate Blood Pressure 153/99 154/91 Blood Pressure 153/99 [Right] O2 Sat by Pulse 99 100 97 Oximetry 01/21/18 01/21/18 01/21/18 03:45 04:00 04:15 Temperature Pulse Rate Respiratory Rate Blood Pressure 153/99 145/86 154/91 Blood Pressure [Right] O2 Sat by Pulse 97 96 98 Oximetry 01/21/18 01/21/18 01/21/18 04:30 04:45 05:00 Temperature Pulse Rate Respiratory Rate Blood Pressure 171/100 171/100 162/101 Blood Pressure [Right] O2 Sat by Pulse 95 99 99 Oximetry 01/21/18 01/21/18 01/21/18 05:15 05:31 05:45 Temperature Pulse Rate Respiratory Rate Blood Pressure 162/101 183/113 183/113 Blood Pressure [Right] O2 Sat by Pulse 99 100 98 Oximetry 01/21/18 01/21/18 01/21/18 06:01 06:15 06:31 Temperature Pulse Rate Respiratory Rate Blood Pressure 153/96 153/96 156/82 Blood Pressure [Right] O2 Sat by Pulse 97 97 97 Oximetry 01/21/18 01/21/18 01/21/18 06:45 07:00 07:15 Temperature Pulse Rate Respiratory Rate Blood Pressure 156/82 157/95 157/95 Blood Pressure [Right] O2 Sat by Pulse 99 98 99 Oximetry ED Medical Decision Making - Lab Data Result diagrams: 01/21/18 03:11 01/21/18 03:11 Laboratory Results - last 24 hr 01/21/18 01/21/18 01/21/18 03:11 03:11 04:48 WBC 5.9 RBC 4.10 Hgb 12.7 Hct 37.9 MCV 93 MCH 31 MCHC 34 RDW 15.0 Plt Count 173 Lymph % (Auto) 28.7 [place] % (Auto) 6.9 Eos % (Auto) 1.3 Baso % (Auto) 0.4 Lymph # 1.7 [place] # 0.4 Eos # 0.1 Baso # 0.0 Seg Neutrophils % 62.7 Seg Neutrophils # 3.7 Sodium 141 Potassium 3.5 L Chloride 103.1 Carbon Dioxide 26 Anion Gap 15 BUN 15 Creatinine 1.0 Estimated GFR > 60 BUN/Creatinine Ratio 15 Glucose 93 Calcium 8.9 Total Bilirubin 0.30 AST 16 ALT 9 Alkaline Phosphatase 60 Total Protein 6.3 Albumin 3.6 L Albumin/Globulin Ratio 1.3 Lipase 31 Urine Color Yellow Urine Turbidity Clear Urine pH 8.0 H Ur Specific [place] 1.013 Urine Protein 30 mg/dl Urine Glucose (UA) Neg Urine Ketones Neg Urine Blood Mod Urine Nitrite Pos Urine Bilirubin Neg Urine Urobilinogen < 2.0 Ur Leukocyte Esterase Lg Urine WBC (Auto) > 182.0 H Urine RBC (Auto) 60.0 U Epithel Cells (Auto) < 1.0 Urine Bacteria (Auto) 2+ Urine WBC Clumps 3+ Calcium Oxalate Crystal 3+ Hyaline Casts 4 Urine Mucus Few Critical care attestation.: If time is entered above; I have spent that time in minutes in the direct care of this critically ill patient, excluding procedure time. ED Disposition Clinical Impression: Acute cystitis Qualifiers: Hematuria presence: with hematuria Qualified Code(s): N30.01 - Acute cystitis with hematuria Disposition: TO HOME OR SELFCARE Is pt being admited?: No Does the pt Need Aspirin: No Condition: Stable Instructions: Urinary Tract Infection in Men (ED), Hopson Catheter Placement and Care (ED) Additional Instructions: You must follow-up on your urine culture in the next two days. It is important to take the antibiotic prescribed. Return if any fever or chills. I give him information about the urology group on-call. Prescriptions: Cefuroxime [Ceftin] 250 mg PO Q12H #14 tablet Referrals: ROCÍO LATIF JR, MD [Primary Care Provider] - 2-3 Days Time of Disposition: 09:20
== END 2018-01-21 10:15 | disposition home or self-care (01) ==
LOC: ED 02:41
DX: N30.00 Acute cystitis without hematuria (principal); I10 Essential (primary) hypertension; J45.909 Unspecified asthma, uncomplicated; F17.200 Nicotine dependence, unspecified, uncomplicated; N40.0 Benign prostatic hyperplasia without lower urinary tract symptoms
CPT/HCPCS: 36415; 51702; 80053; 81001; 83690; 85025; 96372; 99284; J0696

== ENCOUNTER 2018-02-04 10:25 | Emergency (ER) | payer MEDICAID ==
[2018-02-04] MEDS ORDERED: MORPHINE IV ONE (11:01)
[2018-02-04] MEDS ORDERED: ZOFRAN IV ONE (11:01)
--- NOTE | 2018-02-04 11:07 | Emergency Department Report ---
HPI - General Chief Complaint: Abdominal Pain Time Seen by Provider: 02/04/18 10:49 - HPI HPI: Room 8 The patient is a 62-year-old male presents with chief complaint of abdominal pain. The patient states since yesterday is a constant sharp pain across the lower abdomen as well as pain at his urethral meatus secondary to Hopson catheter. The patient admits to subjective fever but denies nausea vomiting or diarrhea. Patient gives his pain a score of 10/10 Location: Lower abdomen Duration: Constant since yesterday Quality: Sharp Severity:10/10 Modifying factors: [see above] Context: [see above] Mode of transportation: [not driving] ED Past Medical Hx - Past Medical History Hx Hypertension: Yes Hx Asthma: Yes Additional medical history: urinary problems, BPH - Surgical History Additional Surgical History: Abdominal Surgery for prostate. Indwelling Hopson Cath - Family History Family history: no significant - Social History Smoking Status: Current Some Day Smoker (1/5 pack per day) Substance Use Type: None - Medications Home Medications: Home Medications Medication Instructions Recorded Confirmed Last Taken Type Ciprofloxacin HCl [Cipro] 500 mg PO BID #14 tablet 01/13/18 Unknown Rx Amoxicillin/K Clav Tab [Augmentin 1 tab PO Q12HR #14 tab 01/15/18 Unknown Rx 875MG TAB] Ibuprofen [Motrin 800 MG tab] 800 mg PO Q8HR PRN #15 tablet 01/15/18 Unknown Rx Neomy/Polymyx B/Hc (Otic) Soln 4 drops OTIC TID #1 bottle 01/15/18 Unknown Rx [Cortisporin (Otic) Soln] Sulfamethoxazole/Trimethoprim 1 each PO BID #14 tablet 01/15/18 Unknown Rx [Bactrim DS TAB] cefUROXime [Ceftin] 250 mg PO Q12H #14 tablet 01/21/18 Unknown Rx Docusate Sodium [Colace] 100 mg PO BID PRN #30 capsule 02/04/18 Unknown Rx Sulfamethoxazole/Trimethoprim 1 each PO BID #6 tablet 02/04/18 Unknown Rx [Bactrim DS TAB] Tramadol HCl [Ultram] 50 mg PO Q4-6H PRN #14 tablet 02/04/18 Unknown Rx ED Review of Systems ROS: Stated complaint: ABDOMINAL PAIN Other details as noted in HPI Constitutional: fever Eyes: denies: eye pain ENT: throat pain Respiratory: no symptoms reported Cardiovascular: denies: chest pain Endocrine: no symptoms reported Gastrointestinal: abdominal pain, constipation. denies: nausea, vomiting, diarrhea Genitourinary: denies: dysuria Musculoskeletal: denies: back pain Neurological: denies: headache Physical Exam - Physical Exam Vital Signs: Vital Signs 02/04/18 10:43 Temperature 98.1 F Pulse Rate 84 Respiratory 18 Rate Blood Pressure 134/83 O2 Sat by Pulse 98 Oximetry Physical Exam: GENERAL: The patient is well-developed well-nourished male lying on stretcher not appearing to be in acute distress. [] HEENT: Normocephalic. Atraumatic. Extraocular motions are intact. Patient has moist mucous membranes. Oropharynx clear NECK: Supple. Trachea midline CHEST/LUNGS: Clear to auscultation. There is no respiratory distress noted. HEART/CARDIOVASCULAR: Regular. There is no tachycardia. There is no gallop rub or murmur. ABDOMEN: Abdomen is soft, with discomfort to palpation in the right lower quadrant and suprapubic region. Patient has normal bowel sounds. There is no abdominal distention. SKIN: There is no rash. There is no edema. There is no diaphoresis. NEURO: The patient is awake, alert, and oriented. The patient is cooperative. The patient has normal speech MUSCULOSKELETAL: There is no evidence of acute injury. ED Course Vital Signs 02/04/18 10:43 Temperature 98.1 F Pulse Rate 84 Respiratory 18 Rate Blood Pressure 134/83 O2 Sat by Pulse 98 Oximetry - Consultations Consultation #1: 02/04/18 12:50 Surgery paged 02/04/18 12:[address] Cuevas. Will review CT and then evaluate patient 02/04/18 14:[address] brown. States does not believe there is any evidence of incarceration. Recommends obtaining CT abdomen and pelvis with oral contrast. If no destruction, patient may be discharged to follow-up in office as an outpatient. ED Medical Decision Making - Lab Data Result diagrams: 02/04/18 11:00 02/04/18 11:00 Laboratory Tests 02/04/18 02/04/18 02/04/18 11:00 11:00 11:00 WBC 5.7 RBC 4.04 Hgb 12.5 Hct 37.3 MCV 92 MCH 31 MCHC 34 RDW 15.3 H Plt Count 191 Lymph % (Auto) 33.7 [place] % (Auto) 7.4 H Eos % (Auto) 1.6 Baso % (Auto) 0.7 Lymph # 1.9 [place] # 0.4 Eos # 0.1 Baso # 0.0 Seg Neutrophils % 56.6 Seg Neutrophils # 3.2 Sodium 139 Potassium 3.6 Chloride 102.4 Carbon Dioxide 25 Anion Gap 15 BUN 20 Creatinine 1.1 Estimated GFR > 60 BUN/Creatinine Ratio 18 Glucose 121 H Calcium 8.8 Total Bilirubin 0.30 AST 18 ALT 11 Alkaline Phosphatase 69 Total Protein 6.7 Albumin 3.9 Albumin/Globulin Ratio 1.4 Lipase 31 Urine Color Urine Turbidity Urine pH Ur Specific [place] Urine Protein Urine Glucose (UA) Urine Ketones Urine Blood Urine Nitrite Urine Bilirubin Urine Urobilinogen Ur Leukocyte Esterase Urine WBC (Auto) Urine RBC (Auto) U Epithel Cells (Auto) 02/04/18 11:30 WBC RBC Hgb Hct MCV MCH MCHC RDW Plt Count Lymph % (Auto) [place] % (Auto) Eos % (Auto) Baso % (Auto) Lymph # [place] # Eos # Baso # Seg Neutrophils % Seg Neutrophils # Sodium Potassium Chloride Carbon Dioxide Anion Gap BUN Creatinine Estimated GFR BUN/Creatinine Ratio Glucose Calcium Total Bilirubin AST ALT Alkaline Phosphatase Total Protein Albumin Albumin/Globulin Ratio Lipase Urine Color Straw Urine Turbidity Clear Urine pH 6.0 Ur Specific [place] 1.003 Urine Protein <15 mg/dl Urine Glucose (UA) Neg Urine Ketones Neg Urine Blood Mod Urine Nitrite Neg Urine Bilirubin Neg Urine Urobilinogen < 2.0 Ur Leukocyte Esterase Lg Urine WBC (Auto) 8.0 H Urine RBC (Auto) 1.0 U Epithel Cells (Auto) < 1.0 - Radiology Data Radiology results: report reviewed (CT abdomen and pelvis), image reviewed (CT abdomen and pelvis) Findings [facility] [address] [place] [address] Cat Scan Report Signed Patient: ROBYN PIMENTEL MR#: [id number] : 1955 Acct :[id number] Age/Sex: 62 / M ADM Date: 02/04/18 Loc: ED Attending Dr: Ordering Physician: DALY KUMARI MD Date of Service: 02/04/18 Procedure(s): CT abdomen pelvis w con Accession Number(s): [id number] cc: DALY KUMARI MD FINAL REPORT EXAM : CT ABDOMEN PELVIS W CON HISTORY: lower abdominal pain. TECHNIQUE: CT of the abdomen and pelvis with IV contrast. Coronal and sagittal reconstructed imaging provided. PRIORS: None currently available. FINDINGS: ABDOMEN: Mild scarring and discoid subsegmental atelectasis at both lung bases. Kidneys: Low- attenuation lesion in the left lower parapelvic region appears represent a simple cyst measuring 1.9 cm. Symmetrical cortical enhancement. No hydronephrosis. Liver: A few low-density subcentimeter lesions are present the liver and are too small to accurately characterize. Gallbladder, stomach, spleen , pancreas, and adrenals are unremarkable. IVC is unremarkable. Mild aortic atherosclerotic disease. No aneurysm or dissection. No periaortic or retroperitoneal mass or adenopathy. Moderate stool throughout the colon. No wall thickening or inflammatory changes. Appendix is normal. Terminal ileum is unremarkable. Loop of small bowel is present within the right inguinal hernia without strangulation. Possible incarceration. Fat containing left inguinal hernia without strangulation. Otherwise, small bowel loops are unremarkable. No obstructive pattern. No air-fluid levels. Mesentery is unremarkable. No adenopathy. No mass. No free air. No free fluid. Fat containing umbilical hernia without strangulation. Left supraumbilical hernia containing containing a loop of colon on series 2:73 does not demonstrate any incarceration or strangulation. PELVIS: Significantly enlarged heterogeneous prostate noted. Mild bladder wall thickening without a distinct lesion. Hopson catheter noted. No pelvic mass or adenopathy. Loop of small bowel is present within the right inguinal hernia without strangulation. Possible incarceration. Fat containing left inguinal hernia without strangulation Bones: No suspicious osseous lesions on this limited examination of the skeleton. Metastatic disease better evaluated with bone scan. Degenerative changes are in the spine. IMPRESSION: Bilateral inguinal hernias. Right inguinal hernia contains fat and a loop of small bowel. No evidence for strangulation, possible incarceration. Please correlate for localized tenderness. Fat containing left inguinal hernia without strangulation. Umbilical and left supraumbilical hernia containing fat. The periumbilical hernia contains a portion of the colon without strangulation or incarceration. Left renal cyst. Subcentimeter hepatic lesions are too small to accurately characterize. Suspect constipation. Significantly enlarged prostate. Mildly thick wall bladder may be related to bladder outlet obstruction. Differential diagnosis would include cystitis. Transcribed By: TYM Dictated By: SHAHZAD LEO MD Electronically Authenticated By: SHAHZAD LEO MD Signed Date /Time: 02/04/18 1234 DD/ 1234 TD/TT: 02/04/18 1234 [facility] [address] [place] [address] Cat Scan Report Signed Patient: ROBYN PIMENTEL MR#: [id number] : 1955 Acct:[id number] Age/Sex: 62 / M ADM Date: 02/04/18 Loc: ED Attending Dr: Ordering Physician: DALY KUMARI MD Date of Service: 02/04/18 Procedure(s): CT abdomen pelvis wo con Accession Number(s): [id number] cc: DALY KUMARI MD FINAL REPORT EXAM: CT ABDOMEN PELVIS WO CON HISTORY: reassessment of right inguinal hernia TECHNIQUE: Axial helical imaging through the abdomen and pelvis with sagittal and coronal reformatted images obtained. Comparison: CT abdomen and pelvis performed earlier today at 12:01 p.m. FINDINGS: There is atelectasis in both lung bases similar in appearance to the previous study. Again noted are small subcentimeter areas of decreased density within the liver that are too small to characterize. The spleen, pancreas and adrenal glands are unremarkable in appearance. There appears to be a left parapelvic cyst. There is no evidence of hydronephrosis. The gallbladder is moderately distended and unremarkable in appearance. The stomach is normal caliber to decompressed. There is mild distention of a long segment of the mid to distal ileum. GI contrast is demonstrated to transit to the level of the mid to distal ileum. There is a transition in caliber in the region of the mid to distal ileum (images 113 through 127, series 2).. The mildly distended segment of distal ileum that contain GI contrast with air-fluid levels measures approximately 2.7 centimeters in caliber. Distal to the transition in the caliber of the small bowel that does not contain GI contrast measures approximately 1.2 centimeters in caliber. In the region of the transition within the mesentery there is a nonspecific focus of increased soft tissue density that is somewhat irregularly shaped and measures approximately 1.6 centimeters in size (images 98 through 103, series 2.). There is no longer a loop of bowel within the right inguinal hernia. However, the loop of bowel extends to the orifice of the hernia. There is a midline anterior abdominal wall hernia that contains a nondistended segment of transverse colon. There is a moderate amount of stool in the ascending, transverse and proximal descending colon. The proximal appendix is enlarged (1.6 centimeters) and contains a large appendicoliths. The more distal appendix is normal caliber. There is no evidence of periappendiceal inflammatory change. There is no evidence of pneumoperitoneum or free fluid. The abdominal aorta is normal caliber. There is no evidence of pathologic intra-abdominal adenopathy by CT size criteria. The urinary bladder is decompressed around a balloon catheter. There is evidence of increased thickness of the urinary bladder wall. The prostate gland is markedly enlarged with maximal axial dimension of 7.6 centimeters. There are bilateral inguinal hernias that contain fat. The bony structures are notable for spondylitic change of the lumbar spine. IMPRESSION: 1. Findings suggestive of a small bowel obstruction in the region of the mid to distal ileum. In the region of the obstruction there is abnormal soft tissue in the mesentery that is of unclear etiology. However, an underlying mass needs to be considered. 2. Reduction of the previously demonstrated herniated small bowel in the right inguinal hernia. 3. No significant change in midline abdominal wall hernia that contains a nondistended segment of transverse colon. 4. Enlarged appendix that contains a large appendicolith. No definite CT evidence of appendicitis. 5. Moderate amount of stool in portions of the colon. 6. Marked enlargement of the prostate gland. 7. Increased thickness of the bladder wall. This study was discussed with Dr Taylor at 5:50 p.m. February 04, 2018. Transcribed By: ED Dictated By: MARIEL SEAY MD Electronically Authenticated By: MARIEL SEAY MD Signed Date/Time: 02/04/181756 DD/ 56 TD/TT: 02/04/181756 - Medical Decision Making Patient has known BPH with indwelling Hopson catheter. No need for emergent urological consult at this time - Differential Diagnosis UTI, diverticulitis, appendicitis, gastritis, constipation Critical care attestation.: If time is entered above; I have spent that time in minutes in the direct care of this critically ill patient, excluding procedure time. ED Disposition Clinical Impression: Acute abdominal pain, UTI (urinary tract infection), Bilateral inguinal hernia , Small bowel obstruction Disposition: ELOPED Is pt being admited?: No Does the pt Need Aspirin: No Condition: Undetermined Prescriptions: Docusate Sodium [Colace] 100 mg PO BID PRN #30 capsule PRN Reason: Constipation Sulfamethoxazole/Trimethoprim [Bactrim DS TAB] 1 each PO BID #6 tablet Tramadol HCl [Ultram] 50 mg PO Q4-6H PRN #14 tablet PRN Reason: Pain , Severe (7-10) Referrals: PRIMARY CAREMD [Primary Care Provider] - 3-5 Days DEL CUEVAS MD [Staff Physician] - 3-5 Days
[2018-02-04 11:23] LABS: Basophils % (Auto) 0.7 % (0.0-1.8); Eosinophils # (Auto) 0.1 K/mm3 (0.0-0.4); Eosinophils % (Auto) 1.6 % (0.0-4.3); Hematocrit 37.3 % (35.5-45.6); Hemoglobin 12.5 gm/dl (11.8-15.2); Lymphocytes # (Auto) 1.9 K/mm3 (1.2-5.4); Lymphocytes % (Auto) 33.7 % (13.4-35.0); Mean Corpuscular HGB Conc 34 % (32-34); Mean Corpuscular Hemoglobin 31 pg (28-32); Mean Corpuscular Volume 92 fl (84-94); Monocytes # (Auto) 0.4 K/mm3 (0.0-0.8); Monocytes % (Auto) 7.4 % (0.0-7.3); Platelet Count 191 K/mm3 (140-440); Red Blood Count 4.04 M/mm3 (3.65-5.03); Red Cell Distribution Width 15.3 % (13.2-15.2)
[2018-02-04 11:42] LABS: Alanine Aminotransferase 11 units/L (7-56); Albumin 3.9 g/dL (3.9-5); BUN/Creatinine Ratio 18; Blood Urea Nitrogen 20 mg/dL (9-20); Calcium 8.8 mg/dL (8.4-10.2); Hemolysis Index 2
[2018-02-04 12:14] LABS: Bilirubin,Urine NEG (Negative); Blood,Urine MOD (Negative); Color,Urine Straw (Yellow); Protein,Urine <15 mg/dL mg/dL (Negative); Urobilinogen,Urine < 2.0 mg/dL (<2.0)
--- NOTE | 2018-02-04 12:34 | Cat Scan Report ---
FINAL REPORT EXAM: CT ABDOMEN PELVIS W CON HISTORY: lower abdominal pain. TECHNIQUE: CT of the abdomen and pelvis with IV contrast. Coronal and sagittal reconstructed imaging provided. PRIORS: None currently available. FINDINGS: ABDOMEN: Mild scarring and discoid subsegmental atelectasis at both lung bases. Kidneys: Low-attenuation lesion in the left lower parapelvic region appears represent a simple cyst measuring 1.9 cm. Symmetrical cortical enhancement. No hydronephrosis. Liver: A few low-density subcentimeter lesions are present the liver and are too small to accurately characterize. Gallbladder, stomach, spleen, pancreas, and adrenals are unremarkable. IVC is unremarkable. Mild aortic atherosclerotic disease. No aneurysm or dissection. No periaortic or retroperitoneal mass or adenopathy. Moderate stool throughout the colon. No wall thickening or inflammatory changes. Appendix is normal. Terminal ileum is unremarkable. Loop of small bowel is present within the right inguinal hernia without strangulation. Possible incarceration. Fat containing left inguinal hernia without strangulation. Otherwise, small bowel loops are unremarkable. No obstructive pattern. No air-fluid levels. Mesentery is unremarkable. No adenopathy. No mass. No free air. No free fluid. Fat containing umbilical hernia without strangulation. Left supraumbilical hernia containing containing a loop of colon on series 2:73 does not demonstrate any incarceration or strangulation. PELVIS: Significantly enlarged heterogeneous prostate noted. Mild bladder wall thickening without a distinct lesion. Hopson catheter noted. No pelvic mass or adenopathy. Loop of small bowel is present within the right inguinal hernia without strangulation. Possible incarceration. Fat containing left inguinal hernia without strangulation Bones: No suspicious osseous lesions on this limited examination of the skeleton. Metastatic disease better evaluated with bone scan. Degenerative changes are in the spine. IMPRESSION: Bilateral inguinal hernias. Right inguinal hernia contains fat and a loop of small bowel. No evidence for strangulation, possible incarceration. Please correlate for localized tenderness. Fat containing left inguinal hernia without strangulation. Umbilical and left supraumbilical hernia containing fat. The periumbilical hernia contains a portion of the colon without strangulation or incarceration. Left renal cyst. Subcentimeter hepatic lesions are too small to accurately characterize. Suspect constipation. Significantly enlarged prostate. Mildly thick wall bladder may be related to bladder outlet obstruction. Differential diagnosis would include cystitis.
--- NOTE | 2018-02-04 17:57 | Cat Scan Report ---
FINAL REPORT EXAM: CT ABDOMEN PELVIS WO CON HISTORY: reassessment of right inguinal hernia TECHNIQUE: Axial helical imaging through the abdomen and pelvis with sagittal and coronal reformatted images obtained. Comparison: CT abdomen and pelvis performed earlier today at 12:01 p.m. FINDINGS: There is atelectasis in both lung bases similar in appearance to the previous study. Again noted are small subcentimeter areas of decreased density within the liver that are too small to characterize. The spleen, pancreas and adrenal glands are unremarkable in appearance. There appears to be a left parapelvic cyst. There is no evidence of hydronephrosis. The gallbladder is moderately distended and unremarkable in appearance. The stomach is normal caliber to decompressed. There is mild distention of a long segment of the mid to distal ileum. GI contrast is demonstrated to transit to the level of the mid to distal ileum. There is a transition in caliber in the region of the mid to distal ileum (images 113 through 127, series 2).. The mildly distended segment of distal ileum that contain GI contrast with air-fluid levels measures approximately 2.7 centimeters in caliber. Distal to the transition in the caliber of the small bowel that does not contain GI contrast measures approximately 1.2 centimeters in caliber. In the region of the transition within the mesentery there is a nonspecific focus of increased soft tissue density that is somewhat irregularly shaped and measures approximately 1.6 centimeters in size (images 98 through 103, series 2.). There is no longer a loop of bowel within the right inguinal hernia. However, the loop of bowel extends to the orifice of the hernia. There is a midline anterior abdominal wall hernia that contains a nondistended segment of transverse colon. There is a moderate amount of stool in the ascending, transverse and proximal descending colon. The proximal appendix is enlarged (1.6 centimeters) and contains a large appendicoliths. The more distal appendix is normal caliber. There is no evidence of periappendiceal inflammatory change. There is no evidence of pneumoperitoneum or free fluid. The abdominal aorta is normal caliber. There is no evidence of pathologic intra-abdominal adenopathy by CT size criteria. The urinary bladder is decompressed around a balloon catheter. There is evidence of increased thickness of the urinary bladder wall. The prostate gland is markedly enlarged with maximal axial dimension of 7.6 centimeters. There are bilateral inguinal hernias that contain fat. The bony structures are notable for spondylitic change of the lumbar spine. IMPRESSION: 1. Findings suggestive of a small bowel obstruction in the region of the mid to distal ileum. In the region of the obstruction there is abnormal soft tissue in the mesentery that is of unclear etiology. However, an underlying mass needs to be considered. 2. Reduction of the previously demonstrated herniated small bowel in the right inguinal hernia. 3. No significant change in midline abdominal wall hernia that contains a nondistended segment of transverse colon. 4. Enlarged appendix that contains a large appendicolith. No definite CT evidence of appendicitis. 5. Moderate amount of stool in portions of the colon. 6. Marked enlargement of the prostate gland. 7. Increased thickness of the bladder wall. This study was discussed with Dr Taylor at 5:50 p.m. February 04, 2018.
[2018-02-04] MEDS ORDERED: XYLOCAINE TOPICAL 4% TP ONE (18:02)
[2018-02-04] MEDS ORDERED: LIDOCAINE VISCOUS 2% PO ONE (18:02)
[2018-02-04 18:13] VITALS: BP 140/85
[2018-02-04] MEDS ORDERED: TYLENOL PO PRN (18:34)
[2018-02-04] MEDS ORDERED: SODIUM CHLORIDE FLUSH SYRINGE 10 ML IV PRN (18:34)
[2018-02-04] MEDS ORDERED: ZOFRAN IV PRN (18:34)
[2018-02-04] MEDS ORDERED: PROVENTIL IH PRN (18:34)
--- NOTE | 2018-02-04 18:38 | History and Physical Report ---
History of Present Illness Chief complaint: My stomach hurts History of present illness: 62 YO Male with HTN, Asthma, Nicotine Dependence, BPH presents to ED for evaluation. Pt states that he has experienced abdominal pain over the past 2 days with persistent symptoms over the past 1 day. Pt states that his pain is currently 10/10, constant, sharp, localized to the lower abdomen. Pt seen and evaluate in ED and found to have evidence of bowel obstruction. Surgery team consulted. Pt denies fever, chills, CP, Palpitations, skin rash, BRBPR, unintentional weight loss, night sweats, bone pain, productive cough, trauma, or recent ill contactcs. Pt refuses to have NGT placed. Pt informed of need for gastric decompression, risk of worsening symptoms, bowel perforation, and risk of . Pt acknowledges understanding,but still refused NGT placement. Past History Past Medical History: hypertension, other (Asthma, Nicotine Dependence) Past Surgical History: bowel surgery Social history: single. denies: smoking, alcohol abuse, prescription drug abuse Family history: no significant family history (reviewed) Medications and Allergies Allergies Allergy/AdvReac Type Severity Reaction Status Date / Time No Known Allergies Allergy Unverified 09/06/17 16:01 Home Medications Medication Instructions Recorded Confirmed Last Taken Type Ciprofloxacin HCl [Cipro] 500 mg PO BID #14 tablet 01/13/18 Unknown Rx Amoxicillin/K Clav Tab [Augmentin 1 tab PO Q12HR #14 tab 01/15/18 Unknown Rx 875MG TAB] Ibuprofen [Motrin 800 MG tab] 800 mg PO Q8HR PRN #15 tablet 01/15/18 Unknown Rx Neomy/Polymyx B/Hc (Otic) Soln 4 drops OTIC TID #1 bottle 01/15/18 Unknown Rx [Cortisporin (Otic) Soln] Sulfamethoxazole/Trimethoprim 1 each PO BID #14 tablet 01/15/18 Unknown Rx [Bactrim DS TAB] cefUROXime [Ceftin] 250 mg PO Q12H #14 tablet 01/21/18 Unknown Rx Docusate Sodium [Colace] 100 mg PO BID PRN #30 capsule 02/04/18 Unknown Rx Sulfamethoxazole/Trimethoprim 1 each PO BID #6 tablet 02/04/18 Unknown Rx [Bactrim DS TAB] Tramadol HCl [Ultram] 50 mg PO Q4-6H PRN #14 tablet 02/04/18 Unknown Rx Active Meds: Active Medications Acetaminophen (Tylenol) 650 mg PO Q4H PRN PRN Reason: Pain MILD(1-3)/Fever >100.5/ABREU Albuterol (Proventil) 2.5 mg IH Q4HRT PRN PRN Reason: Shortness Of Breath Dextrose/Sodium Chloride (D5/0.45ns) 1,000 mls @ 42 mls/hr IV DIRECT GASTON Ondansetron HCl (Zofran) 4 mg IV Q8H PRN PRN Reason: Nausea And Vomiting Sodium Chloride (Sodium Chloride Flush Syringe 10 Ml) 10 ml IV BID GASTON Sodium Chloride (Sodium Chloride Flush Syringe 10 Ml) 10 ml IV PRN PRN PRN Reason: LINE FLUSH Review of Systems Constitutional: no weight loss, no weight gain, no fever, no chills Ears, nose, mouth and throat: no ear pain, no ear discharge, no tinnitis, no nose pain, no nasal congestion Cardiovascular: no chest pain, no orthopnea, no palpitations, no rapid/ irregular heart beat, no edema Respiratory: no cough, no cough with sputum, no excessive sputum, no hemoptysis , no shortness of breath Gastrointestinal: abdominal pain, no nausea, no vomiting, no diarrhea, no BRBPR , no melena, no hematochezia, no loss of appetite, no early satiety Genitourinary Male: no hematuria, no flank pain, no discharge, no urinary frequency, no urinary hesitancy Rectal: no pain, no incontinence, no bleeding, no itching, no hemorrhoids Musculoskeletal: no neck stiffness, no neck pain, no shooting arm pain, no arm numbness/tingling, no low back pain, no shooting leg pain, no hot joints, no morning stiffness, no muscle weakness, no muscle cramps Integumentary: no rash, no pruritis, no redness, no sores, no wounds, no jaundice, no bullae, no lesions, no darkening of skin, no acne Neurological: no transient paralysis, no paralysis, no weakness, no parathesias , no numbness, no tingling, no seizures, no syncope, no migraines, no tic, no aphasia Psychiatric: no anxiety, no memory loss, no change in sleep habits, no sleep disturbances, no insomnia, no hypersomnia, no change in appetite Endocrine: no cold intolerance, no heat intolerance, no polyphagia, no excessive thirst, no polydipsia, no polyuria, no nocturia Hematologic/Lymphatic: no easy bruising, no easy bleeding, no lymphadenopathy, no lymphedema Allergic/Immunologic: no urticaria, no allergic rhinitis, no wheezing, no persistent infections, no anaphylaxis, no angioedema Exam - Constitutional Vitals: Temp Pulse Resp BP Pulse Ox 98.1 F 65 18 140/85 97 02/04/18 10:43 02/04/18 18:13 02/04/18 18:13 02/04/18 18:01 02/04/18 18:01 General appearance: Present: mild distress, well-nourished - EENT Eyes: Present: PERRL ENT: hearing intact, clear oral mucosa - Neck Neck: Present: supple, normal ROM - Respiratory Respiratory effort: normal Respiratory: bilateral: CTA - Cardiovascular Heart Sounds: Present: S1 & S2. Absent: rub, click - Extremities Extremities: pulses symmetrical, No edema Peripheral Pulses: within normal limits - Abdominal General gastrointestinal: Present: soft, tender, distended, normal bowel sounds , hernia. Absent: hepatomegaly, splenomegaly Male genitourinary: Present: normal - Integumentary Integumentary: Present: clear, warm, dry - Musculoskeletal Musculoskeletal: gait normal, strength equal bilaterally - Psychiatric Psychiatric: appropriate mood/affect, intact judgment & insight - Neurologic Neurologic: CNII-XII intact, moves all extremities Results - Labs CBC & Chem 7: 02/04/18 11:00 02/04/18 11:00 Labs: Abnormal lab results 02/04/18 02/04/18 02/04/18 Range/Units 11:00 11:00 11:30 RDW 15.3 H (13.2-15.2) % [place] % (Auto) 7.4 H (0.0-7.3) % Glucose 121 H (75-100) mg/dL Urine WBC (Auto) 8.0 H (0.0-6.0) /HPF Assessment and Plan - Patient Problems (1) SBO (small bowel obstruction) Current Visit: Yes Status: Acute Plan to address problem: Surgery consulted, Pt refused multiple offers of NGT placement for gastric decompression. supportive care. serial lactic acid level, bowel rest (2) HTN (hypertension) Current Visit: Yes Status: Acute Qualifiers: Hypertension type: essential hypertension Qualified Code(s): I10 - Essential (primary) hypertension Plan to address problem: monitor bp q shift, supportive care. continue medical management (3) Nicotine dependence with withdrawal Current Visit: Yes Status: Acute Qualifiers: Nicotine product type: cigarettes Qualified Code(s): F17.213 - Nicotine dependence, cigarettes, with withdrawal Plan to address problem: smoking cessation counseling, supportive care. (4) Acute abdominal pain Current Visit: Yes Status: Acute Plan to address problem: CT Abdomen pelvis, surgery consulted, serial abdominal exams, pain control, (5) DVT prophylaxis Current Visit: Yes Status: Acute Plan to address problem: SCD to BLE while in bed.
--- NOTE | 2018-02-04 18:44 | Event Note ---
Date: 02/04/18 CT scan of the abdomen and pelvis with IV and oral contrast showed a small bowel obstruction. There is no evidence of a closed loop obstruction. The small bowel obstruction is not currently involving the right inguinal hernia. Nasogastric tube was ordered. NPO by mouth is ordered. Discussed findings with patient and informed him of need for hospital admission. He is agreeable to this. Case is discussed with the consulting general surgeon, Dr. Cuevas, who agrees to following consultation. Case is presented to the Hospital physician, Dr. Valdovinos who accepts the patient to the medical service. Vital Signs 02/04/18 02/04/18 02/04/18 10:34 10:43 10:45 Temperature 98.1 F Pulse Rate 84 Respiratory 18 Rate Blood Pressure 134/83 116/75 O2 Sat by Pulse 98 98 97 Oximetry 02/04/18 02/04/18 02/04/18 11:00 11:15 11:31 Temperature Pulse Rate Respiratory Rate Blood Pressure 116/75 126/79 131/73 O2 Sat by Pulse 99 96 97 Oximetry 02/04/18 02/04/18 02/04/18 11:45 12:07 12:51 Temperature Pulse Rate 85 Respiratory 19 Rate Blood Pressure 131/73 131/73 O2 Sat by Pulse 97 89 Oximetry 02/04/18 02/04/18 02/04/18 13:01 13:15 13:31 Temperature Pulse Rate Respiratory Rate Blood Pressure 131/73 131/73 131/73 O2 Sat by Pulse 96 97 96 Oximetry 02/04/18 02/04/18 02/04/18 13:45 14:01 14:15 Temperature Pulse Rate Respiratory Rate Blood Pressure 131/73 131/73 131/73 O2 Sat by Pulse 95 98 95 Oximetry 02/04/18 02/04/18 02/04/18 14:31 14:45 15:01 Temperature Pulse Rate Respiratory Rate Blood Pressure 131/73 153/88 160/103 O2 Sat by Pulse 97 94 98 Oximetry 02/04/18 02/04/18 02/04/18 15:13 15:15 15:31 Temperature Pulse Rate 65 Respiratory 18 Rate Blood Pressure 160/103 160/103 O2 Sat by Pulse 97 96 98 Oximetry 02/04/18 02/04/18 02/04/18 15:45 16:00 16:15 Temperature Pulse Rate Respiratory Rate Blood Pressure 160/103 140/85 140/85 O2 Sat by Pulse 97 98 Oximetry 02/04/18 02/04/18 02/04/18 16:31 16:48 17:01 Temperature Pulse Rate Respiratory Rate Blood Pressure 140/85 140/85 140/85 O2 Sat by Pulse 99 96 96 Oximetry 02/04/18 02/04/18 02/04/18 17:15 17:31 17:45 Temperature Pulse Rate Respiratory Rate Blood Pressure 140/85 140/85 140/85 O2 Sat by Pulse 96 96 99 Oximetry 02/04/18 02/04/18 18:01 18:13 Temperature Pulse Rate 65 Respiratory 18 Rate Blood Pressure 140/85 O2 Sat by Pulse 97 Oximetry Lab Results 02/04/18 02/04/18 02/04/18 Range/Units 11:00 11:00 11:00 WBC 5.7 (4.5-11.0) K/mm3 RBC 4.04 (3.65-5.03) M/mm3 Hgb 12.5 (11.8-15.2) gm/dl Hct 37.3 (35.5-45.6) % MCV 92 (84-94) fl MCH 31 (28-32) pg MCHC 34 (32-34) % RDW 15.3 H (13.2-15.2) % Plt Count 191 (140-440) K/mm3 Lymph % (Auto) 33.7 (13.4-35.0) % [place] % (Auto) 7.4 H (0.0-7.3) % Eos % (Auto) 1.6 (0.0-4.3) % Baso % (Auto) 0.7 (0.0-1.8) % Lymph # 1.9 (1.2-5.4) K/mm3 [place] # 0.4 (0.0-0.8) K/mm3 Eos # 0.1 (0.0-0.4) K/mm3 Baso # 0.0 (0.0-0.1) K/mm3 Seg Neutrophils % 56.6 (40.0-70.0) % Seg Neutrophils # 3.2 (1.8-7.7) K/mm3 Sodium 139 (137-145) mmol/L Potassium 3.6 (3.6-5.0) mmol/L Chloride 102.4 (98-107) mmol/L Carbon Dioxide 25 (22-30) mmol/L Anion Gap 15 mmol/L BUN 20 (9-20) mg/dL Creatinine 1.1 (0.8-1.5) mg/dL Estimated GFR > 60 ml/min BUN/Creatinine Ratio 18 % Glucose 121 H (75-100) mg/dL Calcium 8.8 (8.4-10.2) mg/dL Total Bilirubin 0.30 (0.1-1.2) mg/dL AST 18 (5-40) units/L ALT 11 (7-56) units/L Alkaline Phosphatase 69 (35-129) units/L Total Protein 6.7 (6.3-8.2) g/dL Albumin 3.9 (3.9-5) g/dL Albumin/Globulin Ratio 1.4 % Lipase 31 (13-60) units/L Urine Color (Yellow) Urine Turbidity (Clear) Urine pH (5.0-7.0) Ur Specific [place] (1.003-1.030) Urine Protein (Negative) mg/dL Urine Glucose (UA) (Negative) mg/dL Urine Ketones (Negative) mg/dL Urine Blood (Negative) Urine Nitrite (Negative) Urine Bilirubin (Negative) Urine Urobilinogen (<2.0) mg/dL Ur Leukocyte Esterase (Negative) Urine WBC (Auto) (0.0-6.0) /HPF Urine RBC (Auto) (0.0-6.0) /HPF U Epithel Cells (Auto) (0-13.0) /HPF 02/04/18 Range/Units 11:30 WBC (4.5-11.0) K/mm3 RBC (3.65-5.03) M/mm3 Hgb (11.8-15.2) gm/dl Hct (35.5-45.6) % MCV (84-94) fl MCH (28-32) pg MCHC (32-34) % RDW (13.2-15.2) % Plt Count (140-440) K/mm3 Lymph % (Auto) (13.4-35.0) % [place] % (Auto) (0.0-7.3) % Eos % (Auto) (0.0-4.3) % Baso % (Auto) (0.0-1.8) % Lymph # (1.2-5.4) K/mm3 [place] # (0.0-0.8) K/mm3 Eos # (0.0-0.4) K/mm3 Baso # (0.0-0.1) K/mm3 Seg Neutrophils % (40.0-70.0) % Seg Neutrophils # (1.8-7.7) K/mm3 Sodium (137-145) mmol/L Potassium (3.6-5.0) mmol/L Chloride (98-107) mmol/L Carbon Dioxide (22-30) mmol/L Anion Gap mmol/L BUN (9-20) mg/dL Creatinine (0.8-1.5) mg/dL Estimated GFR ml/min BUN/Creatinine Ratio % Glucose (75-100) mg/dL Calcium (8.4-10.2) mg/dL Total Bilirubin (0.1-1.2) mg/dL AST (5-40) units/L ALT (7-56) units/L Alkaline Phosphatase (35-129) units/L Total Protein (6.3-8.2) g/dL Albumin (3.9-5) g/dL Albumin/Globulin Ratio % Lipase (13-60) units/L Urine Color Straw (Yellow) Urine Turbidity Clear (Clear) Urine pH 6.0 (5.0-7.0) Ur Specific [place] 1.003 (1.003-1.030) Urine Protein <15 mg/dl (Negative) mg/dL Urine Glucose (UA) Neg (Negative) mg/dL Urine Ketones Neg (Negative) mg/dL Urine Blood Mod (Negative) Urine Nitrite Neg (Negative) Urine Bilirubin Neg (Negative) Urine Urobilinogen < 2.0 (<2.0) mg/dL Ur Leukocyte Esterase Lg (Negative) Urine WBC (Auto) 8.0 H (0.0-6.0) /HPF Urine RBC (Auto) 1.0 (0.0-6.0) /HPF U Epithel Cells (Auto) < 1.0 (0-13.0) /HPF Ordering Physician: DALY KUMARI MD Date of Service: 02/04/18 Procedure(s): CT abdomen pelvis wo con Accession Number(s): [id number] cc: DALY KUMARI MD FINAL REPORT EXAM: CT ABDOMEN PELVIS WO CON HISTORY: reassessment of right inguinal hernia TECHNIQUE: Axial helical imaging through the abdomen and pelvis with sagittal and coronal reformatted images obtained. Comparison: CT abdomen and pelvis performed earlier today at 12:01 p.m. FINDINGS: There is atelectasis in both lung bases similar in appearance to the previous study. Again noted are small subcentimeter areas of decreased density within the liver that are too small to characterize. The spleen, pancreas and adrenal glands are unremarkable in appearance. There appears to be a left parapelvic cyst. There is no evidence of hydronephrosis. The gallbladder is moderately distended and unremarkable in appearance. The stomach is normal caliber to decompressed. There is mild distention of a long segment of the mid to distal ileum. GI contrast is demonstrated to transit to the level of the mid to distal ileum. There is a transition in caliber in the region of the mid to distal ileum (images 113 through 127, series 2).. The mildly distended segment of distal ileum that contain GI contrast with air-fluid levels measures approximately 2.7 centimeters in caliber. Distal to the transition in the caliber of the small bowel that does not contain GI contrast measures approximately 1.2 centimeters in caliber. In the region of the transition within the mesentery there is a nonspecific focus of increased soft tissue density that is somewhat irregularly shaped and measures approximately 1.6 centimeters in size (images 98 through 103, series 2.). There is no longer a loop of bowel within the right inguinal hernia. However, the loop of bowel extends to the orifice of the hernia. There is a midline anterior abdominal wall hernia that contains a nondistended segment of transverse colon. There is a moderate amount of stool in the ascending, transverse and proximal descending colon. The proximal appendix is enlarged (1.6 centimeters) and contains a large appendicoliths. The more distal appendix is normal caliber. There is no evidence of periappendiceal inflammatory change. There is no evidence of pneumoperitoneum or free fluid. The abdominal aorta is normal caliber. There is no evidence of pathologic intra-abdominal adenopathy by CT size criteria. The urinary bladder is decompressed around a balloon catheter. There is evidence of increased thickness of the urinary bladder wall. The prostate gland is markedly enlarged with maximal axial dimension of 7.6 centimeters. There are bilateral inguinal hernias that contain fat. The bony structures are notable for spondylitic change of the lumbar spine. IMPRESSION: 1. Findings suggestive of a small bowel obstruction in the region of the mid to distal ileum. In the region of the obstruction there is abnormal soft tissue in the mesentery that is of unclear etiology. However, an underlying mass needs to be considered. 2. Reduction of the previously demonstrated herniated small bowel in the right inguinal hernia. 3. No significant change in midline abdominal wall hernia that contains a nondistended segment of transverse colon. 4. Enlarged appendix that contains a large appendicolith. No definite CT evidence of appendicitis. 5. Moderate amount of stool in portions of the colon. 6. Marked enlargement of the prostate gland. 7. Increased thickness of the bladder wall. This study was discussed with Dr Taylor at 5:50 p.m. February 04, 2018.
[2018-02-04] MEDS ORDERED: SUBLIMAZE IV ONE (18:55)
[2018-02-04] MEDS ORDERED: D5/0.45NS 1,000 ML IV SCH (19:00)
[2018-02-04] MEDS ORDERED: SODIUM CHLORIDE FLUSH SYRINGE 10 ML IV SCH (22:00)
== END 2018-02-04 19:00 | disposition left against medical advice (07) ==
LOC: ED 10:25
DX: N39.0 Urinary tract infection, site not specified (principal); K40.20 Bilateral inguinal hernia, without obstruction or gangrene, not specified as recurrent; K56.699 Other intestinal obstruction unspecified as to partial versus complete obstruction; I10 Essential (primary) hypertension; J45.909 Unspecified asthma, uncomplicated; F17.200 Nicotine dependence, unspecified, uncomplicated
CPT/HCPCS: 36415; 74176; 74177; 80053; 81001; 83690; 85025; 96374; 96375; 99285; J2270; J2405; Q9967